=== PATIENT | female | born 1955 | race Caucasian/White ===

== ENCOUNTER 2017-10-04 11:37 | Emergency (ER) | payer BC, OTHER ==
[~2017-10-04] VITALS: Ht 149.9 cm; Wt 105.2 kg
[2017-10-04] MEDS ORDERED: ROPI1TAB2 (12:31)
[2017-10-04] MEDS ORDERED: TRAM50TA2 (12:31)
[2017-10-04] MEDS ORDERED: OXYC-465 (12:31)
[2017-10-04] MEDS ORDERED: ALPR1TAB7 (12:31)
[2017-10-04] MEDS ORDERED: ALLO100T (12:31)
--- NOTE | 2017-10-04 12:37 | ED Fall/Injury ---
General Chief Complaint: Trauma-Non Activation Stated Complaint: FALL/RIGHT RIB PAIN Nursing Triage Note: PT CO OF FALL AT [facility] PT STATES SLIPPED HAS PAIN IN R RIB,R SHOULDER AND LIMITED MOVEMENT OF R ARM. DENIES LOC Source: patient Exam Limitations: no limitations History of Present Illness Date Seen by Provider: Oct 04, 2017 Time Seen by Provider: 12:17 Initial Comments Here with report of right shoulder and rib pain after falling at the [facility]. Apparently the drain in the locker room was not draining and she slipped on the floor between the stall wall and the toilet. When she slipped down her, her arm was extended upwards. Complains of pain between the shoulder blade and the spine on the right as well as some lateral rib pain. Denies shortness of breath. Location Injury Occurred: [place] Occurred: just prior to arrival (approximately one hour ago) Severity: moderate Injuries/Pain Location: upper extremity, chest, back Context: slipped Loss of Consciousness: no loss of consciousness Associated Symptoms (Fall): No Abdominal Pain, Chest Pain, No Confusion, No Headache, No Lightheadedness, No Nausea/Vomiting, No Neck Pain Allergies and Home Medications Allergies Coded Allergies: No Known Drug Allergies (Unverified , 10/04/17) Home Medications Allopurinol 100 Mg Tablet, (Reported) Alprazolam 1 Mg Tablet, (Reported) Oxycodone HCl/Acetaminophen 1 Each Tablet, (Reported) Ropinirole HCl 1 Mg Tablet, (Reported) Tramadol HCl 50 Mg Tablet, (Reported) Constitutional: see HPI, No chills, No fever Eyes: See HPI Ears, Nose, Mouth, Throat: no symptoms reported Respiratory: No cough, No short of breath Cardiovascular: see HPI, No palpitations Gastrointestinal: No abdominal pain, No nausea, No vomiting Genitourinary: no symptoms reported Musculoskeletal: see HPI, back pain, joint pain, muscle pain, muscle stiffness Skin: no symptoms reported, No change in color, No lesions Past Bfrlwkv-Uvaonj-Ukutyz Hx Patient Social History Alcohol Use: Denies Use Recreational Drug Use: No Smoking Status: Never a Smoker Recent Foreign Travel: No Contact w/Someone Who Travel: No Recent Infectious Disease Expo: No Recent Hopitalizations: No Surgeries History of Surgeries: Yes (TOENAIL REMOVAL) Reviewed Nursing Assessment Reviewed/Agree w Nursing PMH: Yes Family Medical History Significant Family History: No Pertinent Family Hx Physical Exam Vital Signs Vital Signs - First Documented 10/04/17 12:05 Temp 97.4 Pulse 71 Resp 18 B/P (MAP) 162/70 (100) Pulse Ox 97 Capillary Refill : Less Than 3 Seconds General Appearance: WD/WN, no apparent distress Neck: non-tender, full range of motion, supple, normal inspection Cardiovascular: regular rate, rhythm, no murmur Respiratory: lungs clear, normal breath sounds Gastrointestinal: non tender, soft Neurologic/Psychiatric: alert, oriented x 3 Skin: normal color, warm/dry, No ecchymosis Weatherly Coma Score Best Eye Response: (4) Open Spontaneously Best Verbal Response: (5) Oriented Best Motor Response: (6) Obeys Commands Progress/Results/Core Measures Results/Orders My Orders Orders - CAROLINE PALAFOX MD Chest 1 View, Ap/Pa Only (10/04/17 12:12) Ribs, Right 2-3 Views (10/04/17 12:12) Shoulder, Right, 3 Views (10/04/17 12:12) Vital Signs/I&O Vital Sign - Last 12Hours 10/04/17 12:05 Temp 97.4 Pulse 71 Resp 18 B/P (MAP) 162/70 (100) Pulse Ox 97 Blood Pressure Mean: 100 Progress Note : Progress Note Seen and evaluated. X-ray of the chest, right ribs and right shoulder ordered. Monitor patient. 1345: No acute findings. Discharged home with return precautions. Patient verbalize understanding instructions and agreement with plan. Patient does likely have strain of the rhomboid muscles on the right given her type of fall and the lack of fractures but type of pain she is having. She is prescribed oxycodone 10/325. We will increase that to every 4 hours for the next few days. She will use previously prescribed topical cream and/or Biofreeze as well. Diagnostic Imaging Diagonstic Imaging: Xray Plain Films/CT/US/NM/MRI: chest Comments VIA [facility]. [place], [place] NAME: TYRONE CASTRO [facility] REC#: [id number] PT STATUS: REG ER : 1955 PHYSICIAN: CAROLINE PALAFOX MD ADMIT DATE: 10/04/17/ER Draft Date of Exam:10/04/17 CHEST 1 VIEW, AP/PA ONLY CLINICAL INDICATION: Patient fell off toilet at home and has pain on right posterior ribs. EXAM: Portable chest x-ray upright view. COMPARISONS: None. FINDINGS: Lungs/pleura: Lungs are clear. There is no pneumothorax. There is no pleural effusion. Mediastinum: Unremarkable. Pulmonary vasculature: Unremarkable. Heart: Unremarkable. Bones/extrathoracic soft tissue: There are small degenerative spurs involving the thoracic spine. IMPRESSION: There is no radiographic evidence of acute cardiopulmonary process. Dictated on workstation # [id number] Dict: 10/04/17 1252 Trans: 10/04/17 1254 [facility] [id number] Interpreted by: ILIANA MCCALL MD Electronically signed by: Diagonstic Imaging: Xray Plain Films/CT/US/NM/MRI: other (ribs) Comments VIA [place], [place] NAME: TYRONE CASTRO [facility] REC#: [id number] PT STATUS: REG ER : 1955 PHYSICIAN: CAROLINE PALAFOX MD ADMIT DATE: 10/04/17/ER Draft Date of Exam:10/04/17 RIBS, RIGHT 2-3 VIEWS CLINICAL INDICATION: Patient fell off toilet at home and has pain in the right posterior ribs. EXAM: X-ray right rib series, three images. COMPARISON: Chest x-ray dated 10/04/2017. FINDINGS: Of note, there is limited visualization of the mid and lower ribs due to overlapping soft tissue. There is no evidence of acute rib fracture. Multilevel thoracic and lumbar spine degenerative spurs. Visualized portion of the chest is unremarkable. There are mild degenerative changes of the right shoulder. IMPRESSION: There is no fracture of the right ribs seen. Dictated on workstation # [id number] Dict: 10/04/17 1255 Trans: 10/04/17 1300 [id number] Interpreted by: ILIANA MCCALL MD Electronically signed by: Diagonstic Imaging: Xray Plain Films/CT/US/NM/MRI: other (shoulder) Comments [facility]IA [place], [place] NAME: TYRONE CASTRO [facility] REC#: [id number] PT STATUS: REG ER : 1955 PHYSICIAN: CAROLINE PALAFOX MD ADMIT DATE: 10/04/17/ER Draft Date of Exam:10/04/17 SHOULDER, RIGHT, 3 VIEWS CLINICAL INDICATION: Patient fell off toilet at home and now has pain in right shoulder. EXAM: X-ray of the right shoulder, three views. COMPARISON: None. FINDINGS: There is no acute fracture or dislocation. There are small degenerative spurs involving the right acromioclavicular joint and proximal humeral head/neck junction region. IMPRESSION: 1: Mild degenerative disease of the right shoulder with no acute fracture or dislocation. Dictated on workstation # [id number] Dict: 10/04/17 1254 Trans: 10/04/17 1257 [id number] Interpreted by: ILIANA MCCALL MD Electronically signed by: Departure Impression Impression: Primary Impression: Muscle strain of right shoulder region Qualified Codes: S46.911A - Strain of unspecified muscle, fascia and tendon at shoulder and upper arm level, right arm, initial encounter Additional Impression: Contusion of right chest wall Qualified Codes: S20.211A - Contusion of right front wall of thorax, initial encounter Disposition: 01 HOME, SELF-CARE Condition: Stable Departure-Patient Inst. Decision time for Depature: 13:48 Referrals: NO,LOCAL PHYSICIAN (PCP/Family) Primary Care Physician Patient Instructions: CHEST CONTUSION, Muscle Strain (DC), RIB CONTUSION Add. Discharge Instructions: All discharge instructions reviewed with patient and/or family. Voiced understanding. Continue home medications as directed. You may increase your oxycodone pain reliever to one every 4 hours for the next couple days. You may also take ibuprofen 400 or 600 mg every 6 hours. Use ice packs to affected area 20 minutes per hour as needed. Follow up with your DrKarina in a few days for recheck. Return for worse pain, fever, vomiting, weakness, breathing problems or other concerns as needed. CAROLINE PALAFOX MD Oct 04, 2017 12:37
--- NOTE | 2017-10-04 12:55 | Diagnostic Imaging Report ---
CLINICAL INDICATION: Patient fell off toilet at home and has pain on right posterior ribs. EXAM: Portable chest x-ray upright view. COMPARISONS: None. FINDINGS: Lungs/pleura: Lungs are clear. There is no pneumothorax. There is no pleural effusion. Mediastinum: Unremarkable. Pulmonary vasculature: Unremarkable. Heart: Unremarkable. Bones/extrathoracic soft tissue: There are small degenerative spurs involving the thoracic spine. IMPRESSION: There is no radiographic evidence of acute cardiopulmonary process. Dictated by: Dictated on workstation # [id number]
--- NOTE | 2017-10-04 12:57 | Diagnostic Imaging Report ---
CLINICAL INDICATION: Patient fell off toilet at home and now has pain in right shoulder. EXAM: X-ray of the right shoulder, three views. COMPARISON: None. FINDINGS: There is no acute fracture or dislocation. There are small degenerative spurs involving the right acromioclavicular joint and proximal humeral head/neck junction region. IMPRESSION: 1: Mild degenerative disease of the right shoulder with no acute fracture or dislocation. Dictated by: Dictated on workstation # [id number]
--- NOTE | 2017-10-04 13:00 | Diagnostic Imaging Report ---
CLINICAL INDICATION: Patient fell off toilet at home and has pain in the right posterior ribs. EXAM: X-ray right rib series, three images. COMPARISON: Chest x-ray dated 10/04/2017. FINDINGS: Of note, there is limited visualization of the mid and lower ribs due to overlapping soft tissue. There is no evidence of acute rib fracture. Multilevel thoracic and lumbar spine degenerative spurs. Visualized portion of the chest is unremarkable. There are mild degenerative changes of the right shoulder. IMPRESSION: There is no fracture of the right ribs seen. Dictated by: Dictated on workstation # [id number]
[2017-10-04 14:14] VITALS: BP 162/70
--- OUTSIDE RECORDS SUMMARY | 2017-10-04 16:51 | XMS REPORT ---
Author Author MISA FENG [facility] Address Unknown Care Team Providers Care Janitorial Manager Name Role Phone MISA FENG Unavailable PROBLEMS Unknown Problems ALLERGIES No Known Allergies SOCIAL HISTORY Never Assessed PLAN OF CARE Activity Details Follow Up prn Reason:patient was referred VITAL SIGNS Blood pressure systolic 122 mmHg 2016-12-19 Blood pressure diastolic 80 mmHg 2016-12-19 MEDICATIONS Medication Instructions Dosage Frequency Start Date End Date Duration Status Xanax Active Percocet Active Tramadol HCl Active RESULTS No Results PROCEDURES Procedure Date Ordered Result Body Site LTD ORAL EVALUATION - PROBLEM FOCUS December 19, 2016 INTRAORL-PERIAPICAL 1 FILM [id number] December 19, 2016 BITEWING - SINGLE FILM December 19, 2016 IMMUNIZATIONS No Known Immunizations
--- OUTSIDE RECORDS SUMMARY | 2017-10-04 16:51 | XMS REPORT | Continuity of Care Document ---
Author Author [facility] Organization [facility] Address Unknown Phone Unavailable Allergies There is no data. Medications There is no data. Problems There is no data. Procedures There is no data. Results There is no data. Encounters ACCT No. Visit Date/Time Discharge Status Pt. Type Provider Facility Loc./Unit Complaint [id number] 10/15/2016 15:40:29 10/15/2016 23:59:59 CLS Outpatient RASHID WHITMAN
--- OUTSIDE RECORDS SUMMARY | 2017-10-04 16:51 | XMS REPORT ---
Author Author RASHID WHITMAN [facility] Address [address] [place], [place] [id number] Care Team Providers Care Employee Training Specialist Name Role Phone RASHID WHITMAN PCP Unavailable Allergies and Adverse Reactions Name Reaction Notes No known drug allergy Plan of Treatment Not available. Medications Active Name Start Date Estimated Completion Date SIG Comments tramadol 50 mg oral tablet take 1 tablet (50 mg) by oral route every 6 hours as needed ropinirole 1 mg oral tablet alprazolam 1 mg oral tablet take 1 tablet (1 mg) by oral route 3 times per day diclofenac sodium 75 mg oral tablet,delayed release (DR/EC) 10/16/2016 take 1 tablet (75 mg) by oral route 2 times per day Problem List Description Status Onset Other chronic pain Active 10/16/2016 Osteoarthrosis, generalized, multiple sites Active 10/16/2016 Morbid obesity due to excess calories Active 10/16/2016 Restless leg Active 10/16/2016 Knee pain, bilateral Active 10/16/2016 Vital Signs Date Time BP-Sys(mm[Hg] BP-Lilian(mm[Hg]) HR(bpm) RR(rpm) Temp WT HT HC BMI BSA BMI Percentile O2 Sat(%) 10/15/2016 4:15:00 PM 132 mmHg 82 mmHg 72 bpm 18 rpm 99 F 236 lbs 62 in 43.16 kg/m2 2.16 m2 98 % Social History Name Description Comments Uses seatbelts Tobacco Never smoker Alcohol Never History of Procedures Not available. Results Summary Not available. History Of Immunizations Not available. History of Past Illness Name Date of Onset Comments Hay Fever Anxiety Arthritis Other chronic pain 10/16/2016 Osteoarthrosis, generalized, multiple sites 10/16/2016 Morbid obesity due to excess calories 10/16/2016 Restless leg 10/16/2016 Knee pain, bilateral 10/16/2016 Other chronic pain Oct 15 2016 4:16PM Moderate Osteoarthrosis, generalized, multiple sites Oct 15 2016 4:16PM Morbid obesity due to excess calories Oct 15 2016 4:16PM Pain in right knee Oct 15 2016 4:16PM Pain in left knee Oct 15 2016 4:16PM Restless leg Oct 15 2016 4:16PM Payers Insurance Name Company Name Plan Name Plan Number Policy Number Policy Group [id number]/A History of Encounters Visit Date Visit Type Provider 10/15/2016 Office visit RASHID BARNES
== END 2017-10-04 14:14 | disposition home or self-care (01) ==
LOC: ER 11:41
DX: S46.911A Strain of unspecified muscle, fascia and tendon at shoulder and upper arm level, right arm, initial encounter (principal); S20.211A Contusion of right front wall of thorax, initial encounter; W01.0XXA Fall on same level from slipping, tripping and stumbling without subsequent striking against object, initial encounter; Y92.29 Other specified public building as the place of occurrence of the external cause
CPT/HCPCS: 71045; 71100; 73030; 99282

== ENCOUNTER 2018-05-19 09:10 | Emergency (ER) | payer BC ==
[~2018-05-19] VITALS: Ht 149.9 cm; Wt 105.7 kg
[~2018-05-19 09:10] MED LIST: ALLO100T; ALPR1TAB7; OXYC-465; ROPI1TAB2; TRAM50TA2
--- NOTE | 2018-05-19 09:36 | ED Lower Extremity ---
General Chief Complaint: Lower Extremity Stated Complaint: L KNEE PAIN;FALL Nursing Triage Note: AMB TO ROOM [facility] 2 WEEKS AGO L WAS GETTING OUT OF CHAIR L LEG WAS ASLEEP AND FELL ON IT HYDROCODONE NOT HELPING,BUT STILL ABLE TO RIDE HER BIKE . Nursing Sepsis Screen: No Definite Risk Source: patient Exam Limitations: no limitations History of Present Illness Date Seen by Provider: May 19, 2018 Time Seen by Provider: 09:26 Initial Comments Patient presents to the ER by private conveyance with chief complaint that she is having some knee pain about a 7 or 8 out of 10 when she walks on it. She says 2 weeks ago she was sitting in her chair and her left leg went numb so she was getting up to go to the kitchen and using the cabinets and handrails to walk when she fell on the kitchen floor. She did have some pain in her left knee at that time as well as her left shoulder and little bruise on her left forehead. She did not get checked out at that time. She said the rest of the got better but her knee continued to persist. She has not seen her doctor yet. She sees a nurse practitioner with Dr. López in [place], [place]. She is known to the orthopedic surgeons in [facility] however she would prefer not to go back there. She is using tramadol and hydrocodone that she has prescribed to her for her chronic back pain and it's only marginally helping. She will use Aleve once every other day and she says that helps more than anything as well as Voltaren gel. She does not have a history of using blood thinners, heart disease, kidney dysfunction. Allergies and Home Medications Allergies Coded Allergies: No Known Drug Allergies (Unverified , 10/04/17) Patient Home Medication List Home Medication List Reviewed: Yes Review of Systems Constitutional: No chills, No diaphoresis EENTM: No hearing loss, No ear pain Respiratory: No cough, No short of breath Cardiovascular: No chest pain, No edema Gastrointestinal: No abdominal pain, No constipation, No nausea Genitourinary: No discharge, No dysuria Musculoskeletal: No back pain; joint pain Past Rumjwlj-Uqmcpp-Qzwdys Hx Patient Social History Alcohol Use: Denies Use Recreational Drug Use: No Smoking Status: Never a Smoker Recent Foreign Travel: No Contact w/Someone Who Travel: No Recent Infectious Disease Expo: No Recent Hopitalizations: No Past Medical History Surgeries: Yes (TOENAIL REMOVAL) Family Medical History No Pertinent Family Hx Physical Exam Vital Signs Capillary Refill : Less Than 3 Seconds Height, Weight, BMI Height: 4'11.00" Weight: 233lbs. oz. 105.255376kl; BMI Method:Stated General Appearance: WD/WN, no apparent distress HEENT: PERRL/EOMI, pharynx normal Neck: non-tender, normal inspection Cardiovascular: normal peripheral pulses, regular rate, rhythm Respiratory: lungs clear, normal breath sounds Gastrointestinal: normal bowel sounds, non tender, soft Legs: bilateral leg non-tender, bilateral leg normal inspection, bilateral leg normal range of motion, bilateral leg no evidence of injury Knees: right knee non-tender; bilateral knee normal inspection, bilateral knee normal range of motion; right knee no evidence of injury; left knee bone tenderness (patella), left knee joint effusion (mild), left knee pain, left knee swelling (scant), left knee other (anterior Andrew's test has some laxity and tenderness) Ankles: bilateral ankle non-tender, bilateral ankle normal inspection, bilateral ankle normal range of motion, bilateral ankle no evidence of injury Progress/Results/Core Measures Results/Orders Blood Pressure Mean: 93 Progress Progress Note : Time: 09:36 Progress Note We'll give her referral to orthopedic surgery. We have offered her different pain medicines and landed upon using Naprosyn 2 capsules twice a day for the next 2 weeks. Wrap her knee with an Pato bandage encourage elevation and ice and heat. Keep using Voltaren gel. Departure Impression Primary Impression: Sprain of knee Qualified Codes: S83.512A - Sprain of anterior cruciate ligament of left knee , initial encounter Disposition: 01 HOME, SELF-CARE Condition: Stable Departure-Patient Inst. Decision time for Depature: 09:38 Referrals: NO,LOCAL PHYSICIAN (PCP) Primary Care Physician RASHID ZEPEDA MD Patient Instructions: Knee Sprain (DC) Add. Discharge Instructions: Keep your knee wrapped with an Pato bandage or neoprene sleeve. You can use heat alternated with ice. Take the Naprosyn 2 capsules twice a day for the next 2 weeks. He certainly have chest pain or indigestion discontinue the Naprosyn and go see her doctor. Call Drs. Zepeda at his office and make a follow-up appointment. You may need to see your primary care doctor for referral. All discharge instructions reviewed with patient and/or family. Voiced understanding. Copy Copies To 1: RASHID ZEPEDA MD, TITUS J May 19, 2018 09:36
[2018-05-19 09:48] VITALS: BP 141/69
--- OUTSIDE RECORDS SUMMARY | 2018-05-19 10:39 | XMS REPORT | Continuity of Care Document ---
Author Author [facility] Organization [facility] Address Unknown Phone Unavailable Allergies Active Description Code Type Severity Reaction Onset Reported/Identified Relationship to Patient Clinical Status Yes No Known Drug Allergies [id number] Drug Allergy Unknown N/A 10/04/2017 Medications There is no data. Problems Date Dx Coded Attending Type Code Diagnosis Diagnosed By 10/04/2017 CAROLINE PALAFOX MD Ot M25.511 PAIN IN RIGHT SHOULDER 10/04/2017 CAROLINE PALAFOX MD Ot S20.211A CONTUSION OF RIGHT FRONT WALL OF THORAX, 10/04/2017 CAROLINE PALAFOX MD Ot S46.911A STRAIN UNSP [facility]C/FASC/TEND AT [facility] 10/04/2017 CAROLINE PALAFOX MD Ot W01.0XXA FALL SAME LEV FROM SLIP/TRIP W/O STRIKE 10/04/2017 CAROLINE PALAFOX MD Ot Y92.29 [facility] [address] [address] 10/07/2017 CAROLINE PALAFOX MD Ot M25.511 PAIN IN RIGHT SHOULDER 10/07/2017 CAROLINE PALAFOX MD Ot S20.211A CONTUSION OF RIGHT FRONT WALL OF THORAX, 10/07/2017 CAROLINE PALAFOX MD Ot S46.911A STRAIN UNSP [facility]/FASC/TEND AT [facility] 10/07/2017 CAROLINE PALAFOX MD Ot W01.0XXA FALL SAME LEV FROM SLIP/TRIP W/O STRIKE 10/07/2017 CAROLINE PALAFOX MD Ot Y92.29 [facility] [address] Procedures There is no data. Results There is no data. Encounters ACCT No. Visit Date/Time Discharge Status Pt. Type Provider Facility Loc./Unit Complaint [id number] 10/15/2016 15:40:29 10/15/2016 23:59:59 [facility] Outpatient RASHID WHITMAN [id number] 10/04/2017 11:41:00 10/04/2017 14:14:00 DIS Emergency JAVY GRESHAM, CAROLINE Lopez [facility] FALL/RIGHT RIB PAIN
== END 2018-05-19 09:48 | disposition home or self-care (01) ==
LOC: EDUNIT# 09:10 → ER 09:11
DX: S83.512A Sprain of anterior cruciate ligament of left knee, initial encounter (principal); W07.XXXA Fall from chair, initial encounter
CPT/HCPCS: 99283

== ENCOUNTER 2021-02-27 16:08 | Emergency (ER) | payer OTHER, MEDICARE ==
[~2021-02-27] VITALS: Ht 149 cm; Wt 105.0 kg
[~2021-02-27 16:08] MED LIST changes: -OXYC-465; +OXYC-556; +ROPI1TAB; -ROPI1TAB2; -TRAM50TA2; +TRM50T
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
[2021-02-27 17:26] VITALS: BP 126/66
== END 2021-02-27 17:27 | disposition home or self-care (01) ==
LOC: EDUNIT# 16:08 → ER 16:11
DX: M54.10 Radiculopathy, site unspecified (principal)
CPT/HCPCS: 99282

== ENCOUNTER → 2021-03-06 | Outpatient (CLI) | payer OTHER, MEDICARE ==
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
== END ==
LOC: RAD 11:01
PROVIDERS: ATTEND Chiropractor
DX: M47.814 Spondylosis without myelopathy or radiculopathy, thoracic region (principal); M25.512 Pain in left shoulder; M54.2 Cervicalgia; V89.2XXA Person injured in unspecified motor-vehicle accident, traffic, initial encounter
CPT/HCPCS: 72040; 72072; 73030

== ENCOUNTER → 2021-03-08 | Outpatient (CLI) | payer OTHER, MEDICARE ==
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
== END ==
LOC: RAD 08:45
PROVIDERS: ATTEND Chiropractor
DX: S46.012A Strain of muscle(s) and tendon(s) of the rotator cuff of left shoulder, initial encounter (principal); M19.012 Primary osteoarthritis, left shoulder; M50.21 Other cervical disc displacement, high cervical region; M47.812 Spondylosis without myelopathy or radiculopathy, cervical region; R09.89 Other specified symptoms and signs involving the circulatory and respiratory systems; V89.2XXA Person injured in unspecified motor-vehicle accident, traffic, initial encounter
CPT/HCPCS: 72141; 73221

== ENCOUNTER → 2022-06-12 | Outpatient (CLI) | payer MEDICARE, OTHER ==
--- NOTE | 2022-06-12 14:46 | Diagnostic Imaging Report ---
Exam: CT left knee without contrast. Date: June 12, 2022. Indication: 66-year-old female, chronic left knee pain. Exam prior to knee replacement. Surgical planning. Comparison: None. Technique: Axial CT images of the knee without contrast were obtained. Axial CT images at the level of the hip and ankle were also obtained for measurements of femoral version and tibial torsion and surgical planning. All CT scans use one or more of the following dose optimizing techniques: automated exposure control, MA and/or KvP adjustment based on patient size and exam type or iterative reconstruction. Findings: There is severe patellofemoral compartment joint space loss with subchondral cystic changes and osteophytes. There is limited assessment of the medial and lateral compartments given axial only imaging. There is a small knee joint effusion. There is no identified acute fracture or aggressive bone lesion. Impression: 1. Advanced at least patellofemoral compartment osteoarthritis with small knee joint effusion. 2. Limited evaluation of the medial and lateral compartments given axial only imaging. Dictated by: Dictated on workstation # [id number]
== END ==
LOC: RAD 11:08
PROVIDERS: ATTEND Orthopaedic Surgery
DX: M17.0 Bilateral primary osteoarthritis of knee (principal)
CPT/HCPCS: 73700

== ENCOUNTER 2022-06-27 08:11 | Outpatient (CLI) | payer MEDICARE, OTHER ==
[~2022-06-27] VITALS: Ht 149.8 cm; Wt 103.4 kg
[~2022-06-27 08:11] MED LIST changes: -ALPR1TAB7; +ALPR1TAB7 PO; -ROPI1TAB; +ROPI1TAB PO; -TRM50T; +TRM50T PO
[2022-06-27] MEDS ORDERED: DICL100G13 TP (08:57)
[2022-06-27] MEDS ORDERED: MELA1TAB20 PO (08:57)
[2022-06-27] MEDS ORDERED: TURMERIC (08:57)
[2022-06-27] MEDS ORDERED: MULT-1136 PO (08:57)
[2022-06-27] MEDS ORDERED: TLT2T PO (08:57)
[2022-06-27 09:29] LABS: BASOPHILS # (AUTO) 0.1 10^3/uL (0.0-0.1); BASOPHILS % (AUTO) 1 % (0-10); EOSINOPHILS # (AUTO) 0.1 10^3/uL (0.0-0.3); EOSINOPHILS % (AUTO) 2 % (0-10); HEMATOCRIT 45 % (35-52); HEMOGLOBIN 14.4 g/dL (11.5-16.0); LYMPHOCYTES # (AUTO) 1.2 10^3/uL (1.0-4.0); LYMPHOCYTES % (AUTO) 21 % (12-44); MEAN CORPUSCULAR HEMOGLOBIN 30 pg (25-34); MEAN CORPUSCULAR HGB CONC 32 g/dL (32-36); MEAN CORPUSCULAR VOLUME 94 fL (80-99); MONOCYTES # (AUTO) 0.4 10^3/uL (0.0-1.0); MONOCYTES % (AUTO) 7 % (0-12); NEUTROPHILS # (AUTO) 4.2 10^3/uL (1.8-7.8); NEUTROPHILS % (AUTO) 69 % (42-75); PLATELET COUNT 209 10^3/uL (130-400)
[2022-06-27 09:43] LABS: INR 0.9 (0.8-1.4); PROTHROMBIN TIME PATIENT 12.4 SEC (12.2-14.7)
[2022-06-27 09:48] LABS: BILIRUBIN,TOTAL 0.3 MG/DL (0.1-1.0); CALCIUM 9.1 MG/DL (8.5-10.1); CREATININE SERUM 0.86 MG/DL (0.60-1.30); TOTAL PROTEIN 7.2 GM/DL (6.4-8.2)
[2022-06-27 09:50] VITALS: BP 107/48
--- NOTE | 2022-06-27 09:56 | Physical Therapy Pre-Op Eval ---
PT Pre-Surgical Assessment Type of Surgery pre-op left TKA Prior Level of Function Current Living Status: Significant Other Locomotion (Upon Admit): Independent, Straight Cane PLOF DME: Front Wheeled Walker, Straight Cane Subjective Subjective Patient has no pain at rest but has significant pain with activity. Current Living Status: Significant Other Steps Into Home: 1 Motor Control Motor Control: Motor Control WNL ROM left knee flexion 90 degrees, extension +5 degrees Strength LLE (hip flexion 3/5, knee flexion 4/5, knee extension 4/5, dorsiflexion 4/5), RLE (hip flexion 3/5, knee flexion 4/5, knee extension 4/5, dorsiflexion 4/5) Gait Patient instructed on the use and adjusting a rolling walker and how to go up and down stairs and HEP. Treatment Rendered Treatment: Patient instructed in assistive device, supported ambulation. Patient instructed in and given written program of ROM and strengthening exercises to be preformed post-op. Patient instructed in movement precautions where applicable. Patient demonstrates understandings of post-operative therapy protocol including gait pattern and exercise program. Pre-operative instruction completed; await physical therapy orders after surgery. Treatment Goal Met: Yes Assessment Goals Acheived: I Ambulation w/ FWW, Understands P-op [place], I Post-op Exercises Charges/GCodes Time In: 926 Time Out: 936 Total Billed Treatment Time: 10 Total Billed Treatment 1 visit ERVIN FLANAGANCHRISSYCALLUM PT Jun 27, 2022 09:56
[2022-06-27 09:57] LABS: ERYTHROCYTE SEDIMENTATION RATE 12 MM/HR (0-30)
[2022-06-27 10:47] LABS: BILIRUBIN,URINE NEGATIVE (NEGATIVE); CLARITY,URINE CLEAR; COLOR,URINE YELLOW; GLUCOSE, URINE (UA) NEGATIVE (NEGATIVE); KETONES,URINE NEGATIVE (NEGATIVE); LEUKOCYTE ESTERASE ,URINE 1+ (NEGATIVE); NITRITE,URINE NEGATIVE (NEGATIVE); PH,URINE 6.5 (5-9); PROTEIN,URINE NEGATIVE (NEGATIVE)
[2022-06-27 10:54] LABS: BACTERIA,URINE NEGATIVE /HPF; SQUAMOUS EPITHELIAL CELL,UR 0-2 /HPF; WBC,URINE 0-2 /HPF
--- NOTE | 2022-06-27 13:28 | Diagnostic Imaging Report ---
INDICATION: Preop left total knee. COMPARISON: 03/03/2019. FINDINGS: The lungs are clear. No failure, effusion, or pneumothorax. IMPRESSION: Stable chest. No acute appearing abnormality. Dictated by: Dictated on workstation # [id number]
== END 2022-06-28 15:41 ==
LOC: PREOP 08:11
PROVIDERS: ATTEND Orthopaedic Surgery
DX: Z01.818 Encounter for other preprocedural examination (principal); M17.12 Unilateral primary osteoarthritis, left knee
CPT/HCPCS: 36415; 71046; 80053; 81000; 82308; 85025; 85610; 85652; 86850; 86900; 86901; 87081; 93005

== ENCOUNTER 2022-07-04 07:59 | Inpatient (IN) | payer MEDICARE, OTHER ==
--- NOTE | 2022-06-26 07:32 | HISTORY AND PHYSICAL ---
ADMISSION HISTORY AND PHYSICAL This will be for inpatient admission on 07/04/2022 for left total knee arthroplasty. The patient will require regular inpatient admission due to pain management, need for physical therapy and comorbidities. HISTORY OF PRESENT ILLNESS: The patient is a 66-year-old female with longstanding progressive bilateral knee pain, left worse than right. She reports pain with activities of daily living. She has undergone treatment with injections, anti-inflammatories and rest without relief. Due to functional impairment and failure to improve with conservative measures, the patient elected to proceed with surgical intervention. REVIEW OF SYSTEMS: No chest pain, no shortness of breath, no dysuria. PAST MEDICAL HISTORY: Back pain, leg pain, paresthesias, dysmorphic mood, anxiety, stress, depression, arthritis. PAST SURGICAL HISTORY: Tonsillectomy, right foot bunionectomy, root canal, , second toe and right foot removal. FAMILY HISTORY: Significant for Alzheimer's, cancer, hypertension. PRIMARY CARE PROVIDER: Dr. López. MEDICATIONS: Diclofenac, tramadol, Detrol, turmeric, melatonin, alprazolam, ropinirole. ALLERGIES: LYRICA, PENICILLIN. SOCIAL HISTORY: The patient is a former smoker. She drinks alcohol 2 to 3 times per week. PHYSICAL EXAMINATION: GENERAL: The patient is well-developed, well-nourished, in no acute distress. HEENT: Normocephalic, atraumatic. Pupils are equal, round and reactive to light. Oropharynx is clear. NECK: Supple, no lymphadenopathy. LUNGS: Clear to auscultation bilaterally. HEART: Regular rate and rhythm. ABDOMEN: Soft, nontender, nondistended. EXTREMITIES: The left knee demonstrates valgus alignment. She has a slight effusion. She is tender along her lateral joint line. She has pain with patellar loading and crepitus noted. Range of motion is 0/0/120. There is no varus valgus laxity. Negative anterior and posterior drawer. IMPRESSION: Left knee primary osteoarthritis. PLAN: Left total knee arthroplasty. The risks, benefits, options, ramifications and recovery were discussed at length with the patient. She understands and wishes to proceed. DocumentID: [id number] Dictated Date: 06/22/2022 00:00:00 Supervisor Receiving And Processing Date: 06/22/2022 03:29:00 Dictated By: RASHID ZEPEDA MD
[2022-07-04] VITALS (14 sets, daily range): BP systolic 114–164; BP diastolic 56–95
[~2022-07-04] VITALS: Ht 149.8 cm; Wt 103.4 kg
[~2022-07-04 07:59] MED LIST changes: -ALLO100T; +ALLO100T PO; +DICL100G13 TP; +MELA1TAB20 PO; +MULT-1136 PO; +ONDANSETRON 4 MG/2 ML (SDV) Z0FRAN IVP PRN; +TLT2T PO; +TURMERIC; +diphenhydrAMINE 50 MG/ML INJ (BENADRYL) IVP PRN; +morphine PCA 100 MG/100 ML BAG IV PRN
[2022-07-04] MEDS ORDERED: CEFUROXIME INJECTION 1,500 MG in NS (IVPB) 50 ML IV ONE (08:15)
[2022-07-04] MEDS ORDERED: INTRA-ARTICULAR IU ONE ×5 (08:30)
[2022-07-04] MEDS ORDERED: MIDAZOLAM 2 MG/2 ML (VERSED) VIAL ONE (08:31)
[2022-07-04] MEDS ORDERED: fentaNYL INJ 100 MCG/2 ML AMP ONE ×3 (08:40→11:30)
[2022-07-04] MEDS ORDERED: ROPIVACAINE 5MG/ML 30ML VIAL ONE (08:41)
--- NOTE | 2022-07-04 09:07 | Progress Note-Pre Operative ---
Pre-Operative Progress Note Date of Available H&P: Jun 22, 2022 Date H&P Reviewed: Jul 04, 2022 Time H&P Reviewed: 07:11 Changes from last HP none Pre-Operative Diagnosis: left knee primary osteoarthitis RASHID ZEPEDA MD Jul 04, 2022 09:07
--- NOTE | 2022-07-04 09:08 | Progress Note-Post Operative ---
Post-Operative Progess Note Surgeon (s)/Ticket Sales Agent (s) Surgeon RASHID ZEPEDA MD Ticket Sales Agent: Moises Sebastian Pre-Operative Diagnosis left knee primary osteoarthitis Post-Operative Diagnosis left knee primary osteoarthitis Procedure & Operative Findings Date of Procedure 07/04/22 Procedure Performed/Findings left total knee arthroplasty Anesthesia Type GETA Estimated Blood Loss Estimated blood loss (mL): minimal Specimens/Packing Specimens Removed none Packing: none RASHID ZEPEDA MD Jul 04, 2022 09:08
[2022-07-04] MEDS: LACTATED RINGERS 1,000 ML IV PRN ×2 (09:09→10:59)
--- NOTE | 2022-07-04 09:11 | D/C HH Face to Face Order ---
D/C Face to Face Orders Reconcile Patient Problems Problems Reviewed?: Yes Instructions for Patient Via [facility], Patient Instructions/FollowUp: three weeks Physician to follow Patient: three weeks Discharge Diet for Home: Regular Diet Patient Data-Allergies,Ht & Wt Patient Allergies: Coded Allergies: codeine (Verified Allergy, Mild, ITCHY, 06/27/22) Height (Feet): 4 Height (Inches): 11.00 Weight (Pounds): 233 Home Health Need/Face to Face Date of Face to Face: Jul 04, 2022 Clinical Findings: Muscle weakness, Pain with ambulation I have seen Pt [id number]: Yes Discharged To: Home Diagnosis/Conditions: left total knee arthroplasty Patient is Homebound due to: Muscle weakness, Pain w/ambulation Homebound Status Due to the above stated illness, injury or surgical procedure (medical condition or diagnosis) and associated clinical findings, the patient is homebound because of his/her inability to leave home except with aid of a supportive device and/or person AND leaving the home requires a considerable and taxing effort or is medically contraindicated. Pt req the following assistanc: Walker Home Health Nursing Orders Home Health Services Order: Physical Therapy-Evaluate & Treat dc left knee purvi and apply steri strips 07/18/22 Therapy Orders Therapy Orders: Physical Therapy, PT to assess for OT Therapy Specific Orders: Eval assistive deivces, Teach enviro modifications/safety, Gait training, Increase strength/endurance, Provider maintenance therapy, Restore ROM Certify Stmt I certify that this patient is under my care and that I, a nurse practitioner or a physician; a commercial loan assistant working with me, had a face to face encounter that - meets the physician face to face encounter requirements with this patient as dated. RASHID ZEPEDA MD Jul 04, 2022 09:11
[2022-07-04] MEDS ORDERED: ONDANSETRON 4 MG/2 ML (SDV) Z0FRAN ONE (09:20)
[2022-07-04] MEDS ORDERED: LIDOCAINE PF 2% 5 ML (XYLOCAINE) VIAL ONE (09:20)
[2022-07-04] MEDS ORDERED: TRANEXAMIC ACID 100 MG/ML 10 ML INJECTION ONE (09:20)
[2022-07-04] MEDS ORDERED: proPOfol 200 MG/20 ML (DIPRIVAN) VIAL IV ONE (09:20)
[2022-07-04] MEDS ORDERED: PROPOFOL INJECTION 0 ML IV ONE (09:20)
[2022-07-04] MEDS ORDERED: SEVOFLURANE (ULTANE) 15 ML INHAL SOLN ONE (10:42)
[2022-07-04] MEDS ORDERED: HYDROmorphone 2 MG/ML VIAL (DILAUDID) ONE (10:49)
[2022-07-04] MEDS ORDERED: LACTATED RINGERS 1,000 ML IV ONE (10:50)
--- NOTE | 2022-07-04 10:53 | Anesthesia-General Post-Op ---
General Patient Condition Mental Status/LOC: Same as Preop Cardiovascular: Satisfactory Nausea/Vomiting: Absent Respiratory: Satisfactory Pain: Controlled Complications: Absent Post Op Complications Complications None Follow Up Care/Instructions Patient Instructions None needed. Anesthesia/Patient Condition Patient Condition Patient is doing well, no complaints, stable vital signs, no apparent adverse anesthesia problems. No complications reported per nursing. KATHY GONGORA CRNA Jul 04, 2022 10:53
[2022-07-04] MEDS ORDERED: ONDANSETRON 4 MG/2 ML (SDV) Z0FRAN IVP PRN (11:00)
[2022-07-04] MEDS ORDERED: HYDROmorphone 2 MG/ML VIAL (DILAUDID) IV ONE (11:00)
--- NOTE | 2022-07-04 11:13 | Progress Note ---
Standard Progress Note Progress Notes/Assess & Plan Date Seen by a Provider: Jul 04, 2022 Time Seen by a Provider: 11:12 Progress/Assessment & Plan post op check no complaints radiographs--HW well positioned without fracture LLE-2 plus DP pulse with brisk cap refill intact DF and PF of toes and ankle sensation intact to light touch s/p LTKA mobilize as able ARSHID ZEPEDA MD Jul 04, 2022 11:13
[2022-07-04] MEDS ORDERED: fentaNYL INJ 100 MCG/2 ML AMP IVP ONE (11:45)
[2022-07-04] MEDS: SENNA W/DOCUSATE (SENOKOT S) TABLET PO SCH ×2 (13:29→20:14)
[2022-07-04] MEDS: NS IV 1000 ML 1,000 ML IV SCH ×2 (13:51→20:09)
--- NOTE | 2022-07-04 14:05 | Physical Therapy Evaluation ---
PT Evaluation-General Medical Diagnosis Admission Date Jul 04, 2022 at 07:59 Medical Diagnosis: L TKA Onset Date: Jul 04, 2022 Therapy Diagnosis Therapy Diagnosis: Weakness, Impaired Mobility Height/Weight Height (Feet): 4 Height (Inches): 11.00 Weight (Pounds): 233 Precautions Precautions/Isolations: Standard Precautions Weight Bear Status Right Lower Extremity: Right Full Weight Bearing Left Lower Extremity: Left Weight Bearing/Tolerated Referral Physician: Romulo Reason for Referral: Evaluation/Treatment Medical History Additional Medical History PAST MEDICAL HISTORY: Back pain, leg pain, paresthesias, dysmorphic mood, anxiety, stress, depression, arthritis. PAST SURGICAL HISTORY: Tonsillectomy, right foot bunionectomy, root canal, , second toe and right foot removal. Reviewed History: Yes Social History Home: Single Level Current Living Status: Spouse Entry Into Home: Stairs Without Railing PT Steps Into Home: 2 Prior Prior Level of Function SCALE: Activities may be completed with or without assistive devices. 8-Mndiavqgwv-ofundqi completes the activity by him/herself with no assistance from a helper. 5-Set-up or Clean-up Assistance-helper sets up or cleans up; patient completes activity. [place] assists only prior to or following the activity. 4-Supervision or Touching Assistance-helper provides verbal cues and/or touching/steadying and/or contact guard assistance as patient completes activity. Assistance may be provided throughout the activity or intermittently. 3-Partial/Moderate Assistance-helper does LESS THAN HALF the effort. [place] lifts, holds or supports trunk or limbs, but provides less than half the effort. 2-Substantial/Maximal Assistance-helper does MORE THAN HALF the effort. [place] lifts or holds trunk or limbs and provides more than half the effort. 0-Kijtqaaga-xyhtka does ALL the effort. Patient does none of the effort to complete the activity. Or, the assistance of 2 or more helpers is required for the patient to complete the activity. If activity was not attempted, code reason: 7-Patient Refused. 9-Not Applicable-not attempted and the patient did not perform the activity before the current illness, exacerbation or injury. 10-Not Attempted due to Environmental Limitations-(lack of equipment, weather restraints, etc.). 88-Not Attempted due to Medical Conditions or Safety Concerns. Bed Mobility: 6 Transfers (B,C,W/C): 6 Gait: 6 Stairs: 6 Indoor Mobility (Ambulation): Independent Stairs: Independent Prior Device Use: Unspecified Cane PT Evaluation-Current Subjective Patient in bed pre-tx, reports 5/10 pain in L knee joint, agrees to PT with some encouragement. Pt/Family Goals Return to independence at home. Objective Patient Orientation: Person, Place, Situation Attachments: Polar Pack, IV ROM/Strength ROM Lower Extremities RLE grossly WFL, LLE diminished due to recent TKA Strength Lower Extremities LLE deferred due to pain, RLE grossly 4/5 Neuromuscular (Tone, Coordination, Reflexes) Coordination intact Sensory Vision: Functional Hearing: Functional Sensation Right Lower Extremit: Intact Sensation Left Lower Extremity: Intact Transfers Roll Left to Right (QC): 3 Sit to Lying (QC): 3 Lying to Sitting/Side of Bed(Q: 3 Sit to Stand (QC): 4 SBA gag-jf-bztjm, Min A by lifting L leg during bed mobility Gait Does the Patient Walk?: Yes Mode of Locomotion: Walk Anticipated Mode of Locomotion: Walk Walk 10 feet (QC): 4 Walk 50 ft with 2 Turns(QC): 4 Walk 150 ft (QC): 4 Distance: 150' Gait Assistive Device: FWW Comments/Gait Description SBA with ambulation, patient walks with decreased gait speed, decreased step length, decreased foot clearance, and slight limp on L side. Balance Sitting Static: Normal Sitting Dynamic: Normal Standing Static: Normal Standing Dynamic: Fair Treatment Ambulation, after getting back into bed patient refuses total knee exercises due to fatigue Assessment/Needs Patient walks well with SBA during ambulation. Patient needs assistance to lift L leg with bed mobility due to decreased strength. Patient in bed post-tx with nurse phone, tray, phone, in room, polar pack on, all needs met. Rehab Potential: Fair PT Fitness Worker Goals Longterm Goals PT Fitness Worker Goals Time Frame: Jul 11, 2022 Roll Left & Right (QC): 6 Sit to Lying (QC): 6 Lying-Sitting on Side/Bed(QC): 6 Sit to Stand (QC): 6 Chair/Gqt-zf-Apnrt Xfer(QC): 6 Toilet Transfer (QC): 6 Does the Patient Walk: Yes Walk 10 feet (QC): 6 Walk 50ft with 2 Turns (QC): 6 Walk 150 ft (QC): 6 PT Plan Problem List Problem List: Activity Tolerance, Functional Strength, Safety, Balance, Gait, Transfer, Bed Mobility, ROM Treatment/Plan Treatment Plan: Continue Plan of Care Treatment Plan: Bed Mobility, Education, Functional Activity Fahad, Functional Strength, Gait, Safety, Therapeutic Exercise, Transfers Treatment Duration: Jul 11, 2022 Frequency: 11 times per week Estimated Hrs Per Day: 1 hour per day Patient and/or Family Agrees t: Yes Safety Risks/Education Patient Education: Gait Training, Transfer Techniques, Correct Positioning, Safety Issues Teaching Recipient: Patient Teaching Methods: Demonstration, Discussion Response to Teaching: Reinforcement Needed Discharge Recommendations Plan Patient will perform endurance and balance training, bed mobility and transfer training, functional strengthening and gait training in order to be independent at home. Therapy Discharge Recommendati: Home & Family, Post Acute PT Time Time In: 1326 Time Out: 1345 DATE: Jul 04, 2022 Total Billed Treatment Time: 19 Total Billed Treatment 1 visit EVL 19min CALLUM LOPEZ PT Jul 04, 2022 14:05
[2022-07-04] MEDS ORDERED: ALPRAZolam 1 MG (XANAX) TAB PO PRN (15:15)
--- NOTE | 2022-07-04 15:57 | Consultation - Hospitalist ---
HPI History of Present Illness: HPI/Chief Complaint Patient is 58-year-old female past medical history of hypertension, restless leg, osteoarthritis who was admitted to the hospital for knee replacement by Dr. Marin. I am consulted for medical management. She reports that she is doing very well postoperatively. She is already worked with [employer] and has walked down the ayala. She also got up and walked to the bathroom. She reports that her pain is well controlled with her current regimen. Her blood pressure is mildly elevated but she associates that with her pain. She has no complaints at this time. Source: patient Exam Limitations: no limitations Date Seen 07/04/22 Attending Physician Rafael López DO PCP Admitting Physician: Enrique Marin MD Attending Physician: Enrique Marin MD Referring Physician Date of Admission Jul 04, 2022 at 7:59 am Home Medications & Allergies Home Medications Reviewed patient Home Medication Reconciliation performed by pharmacy medication reconciliations monogram technician and/or nursing. Patients Allergies have been reviewed. Allergies Allergies Coded Allergies codeine (Verified Allergy, Mild, ITCHY, 06/27/22) Past Kylmduz-Ghtkxw-Mrythw Hx Patient Social History Tobacco Use?: No Smoking Status: Former Smoker Use of E-Cig and/or Vaping dev: No Substance use?: No Alcohol Use?: Yes Alcohol Frequency: Rarely Pt feels they are or have been: No Seasonal Allergies Seasonal Allergies: Yes Current Status Advance Directives: No Communicates: Verbally Primary Language: Ghanaian Sensory deficits: Vision impairment Implanted or Applied Medical D: None Past Medical History Surgeries: Tonsillectomy Currently Using CPAP: No Currently Using BIPAP: No Arthritis, Chronic Back Pain Anxiety, Depression Blood Disorders: No Family Medical History No Pertinent Family Hx Review of Systems Constitutional: no symptoms reported Respiratory: no symptoms reported Cardiovascular: no symptoms reported Gastrointestinal: no symptoms reported Genitourinary: no symptoms reported Musculoskeletal: see HPI, joint pain Skin: no symptoms reported Psychiatric/Neurological: No Symptoms Reported Physical Exam Physical Exam Vital Signs Vital Signs - First Documented Capillary Refill : Less Than 3 Seconds Height, Weight, BMI Height: 4'11.00" Weight: 233lbs. oz. 105.656096vj; 46.07 BMI Method:Stated General Appearance: No Apparent Distress, WD/WN, Obese HEENT: PERRL/EOMI, Moist Mucous Membranes Neck: Normal Inspection Respiratory: Lungs Clear, No Respiratory Distress Cardiovascular: Regular Rate, Rhythm, No JVD, No Murmur Gastrointestinal: Normal Bowel Sounds, Non Tender, Soft Back: Other (surgical dressing in place) Neurologic/Psychiatric: Alert, Oriented x3, Normal Mood/Affect Results Results/Procedures Labs Laboratory Tests 07/05/22 05:36 Patient resulted labs reviewed. Imaging: Reviewed Imaging Report Imaging [facility], [place] NAME: TYRONE CASTRO [facility] REC#: [id number] PT STATUS: ADM IN : 1955 PHYSICIAN: CECILIA MCKEON ADMIT DATE: 07/04/22 Signed Date of Exam:07/04/22 KNEE, LEFT, 2 VIEWS (AP & LAT) KNEE, LEFT, 2 VIEWS (AP LAT) INDICATION: Postop surveillance after knee arthroplasty. COMPARISON: None available. TECHNIQUE: Two views of the left knee. FINDINGS: Total knee arthroplasty with patellar resurfacing. No acute periprosthetic fracture. Prosthesis is normal in alignment. Expected postoperative soft tissue gas and joint fluid. IMPRESSION: Expected appearance status post total knee arthroplasty. 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 Please call for any questions or needs. Diagnosis/Problems Diagnosis/Problems (1) Osteoarthritis of left knee KATIE STEPHENSON MD Jul 04, 2022 15:57
--- NOTE | 2022-07-04 16:33 | Diagnostic Imaging Report ---
KNEE, LEFT, 2 VIEWS (AP LAT) INDICATION: Postop surveillance after knee arthroplasty. COMPARISON: None available. TECHNIQUE: Two views of the left knee. FINDINGS: Total knee arthroplasty with patellar resurfacing. No acute periprosthetic fracture. Prosthesis is normal in alignment. Expected postoperative soft tissue gas and joint fluid. IMPRESSION: Expected appearance status post total knee arthroplasty. Dictated by: Dictated on workstation # [id number]
[2022-07-04] MEDS: rOPINIRole 1 MG (REQUIP) TABLET PO SCH ×2 (16:55→20:08)
[2022-07-04] MEDS: CEFUROXIME INJECTION 750 MG in NS (IVPB) 50 ML IV SCH ×2 (17:01→23:47)
[2022-07-04] MEDS ORDERED: FLU QUAD HIGH DOSE 240 MCG/0.7 ML 2022-23 (FLUZONE) IM ONE (17:30)
[2022-07-04] MEDS: oxyCODONE/APAP 5/325MG (PERCOCET 5) TABLET PO PRN (20:08)
--- NOTE | 2022-07-04 21:15 | OPERATIVE REPORT ---
DATE OF SERVICE: 07/04/2022 PREOPERATIVE DIAGNOSIS: Left knee primary osteoarthritis. POSTOPERATIVE DIAGNOSIS: Left knee primary osteoarthritis. PROCEDURE: Left total knee arthroplasty. SURGEON: Enrique Zepeda MD ESCROW OFFICER: Moises Sebastian, who assisted throughout the procedure and closed the incision. ANESTHESIA: General endotracheal by Marychuy Hubbard CRNA. TOURNIQUET TIME: 65 minutes at 300 mmHg. ESTIMATED BLOOD LOSS: Minimal. DRAINS: None. COMPLICATIONS: None. POSTOPERATIVE PLAN: Routine total knee arthroplasty protocol. The patient was transported to recovery room awake and stable condition. MATERIAL: Cemented size 4 femur, cemented size 3 tibia with a 14 mm insert and a 32 mm patellar button. STATEMENT OF MEDICAL NECESSITY: The patient is a 66-year-old female with longstanding progressive left knee pain. She had undergone treatment with injections, anti-inflammatories and rest without relief. Radiographs revealed severe lateral and patellofemoral arthrosis. Due to functional impairment and failure to improve with conservative measures, the patient elected to proceed with surgical intervention. DESCRIPTION OF PROCEDURE: After risks and benefits of the procedure were discussed and questions were answered, informed consent was signed and placed on the chart. The operative site was confirmed in the preoperative holding area and initialed by surgeon. DESCRIPTION OF PROCEDURE: The patient was then transported to the operating room and after adequate levels of general endotracheal anesthetic was obtained, a timeout was called, confirming the operative site. The left lower extremity was prepped and draped in the usual sterile fashion with the leg elevated and the knee flexed, tourniquet was inflated to 300 mmHg. Standard anterior approach was utilized. Hemostasis obtained with cautery. Medial parapatellar arthrotomy was performed, leaving a 1 cm cuff on the patella for later reattachment portion of the fat pad was resected. A subperiosteal release was performed in the proximal medial tibia, being careful to stay on the bony surface. The ACL was resected. The custom block was then placed and had excellent coverage. This was pinned into position. The distal cut was made and the 4 cutting block was placed parallel to the epicondylar axis and the previously prepared drill holes. Cuts were then made from posterior to anterior. Subperiosteal release was then carefully performed on the posterior distal femur, being careful to stay on the bony surface. The tibial block was then placed and again had excellent coverage. This was pinned into position. The cut was made. The 3 baseplate was placed. The drop jason transected the intermalleolar axis and this was prepared with the drill and keel punch. The femoral trial was placed. The trochlear cut was made. The patella was prepared by resecting 10 mm off the under surface. The peg hole were drilled and the trial was placed. The knee was taken through range of motion with a 14 mm insert, full extension was easily obtained 120 degrees of flexion with gravity was easily obtained. The patella tracked well. There was no anterior/posterior or medial/lateral laxity in flexion or extension. The trials were removed. The joint was irrigated with pulse lavage. The periarticular block was placed in the posterior capsule, medial and lateral retinaculum extensor mechanism subcutaneous tissues. The bony ends were irrigated. The tibial baseplate was cemented into position. Excess cement was removed. Superior surface was irrigated and dried and the polyethylene insert was placed. The distal femur was irrigated and dried and the femoral prosthesis was cemented into position. Excess cement was removed. The knee was brought out in full extension until the cement cured. The undersurface of the patella was irrigated and dried and the patellar button was cemented into position. Excess cement was removed. Once cement had cured, the knee was taken through range of motion, full extension was easily obtained, 120 degrees of flexion with gravity was obtained. The patella tracked well. There was no anterior/posterior or medial/lateral laxity in flexion or extension. The joint was further irrigated with pulse lavage. The arthrotomy was closed with #2 Tevdek in yhojiw-ag-suzlc fashion. The knee was flexed. The repair was stable. Subcutaneous tissues were irrigated using a total of 6 liters throughout the procedure. 0 Vicryl was used for deep subcutaneous layer, 2-0 Vicryl was used for the superficial subcutaneous layer, purvi used on the skin. Soft dressing was applied. The tourniquet was deflated and the patient was transported to recovery room awake and stable condition. Job ID: [id number] DocumentID: [id number] Dictated Date: 07/04/2022 10:49:43 Incident Response Coordinator Date: 07/04/2022 21:14:00 Dictated By: ENRIQUE ZEPEDA MD
[2022-07-05] MEDS: oxyCODONE/APAP 5/325MG (PERCOCET 5) TABLET PO PRN ×6 (00:08→21:08)
[2022-07-05 03:55] VITALS: BP 103/65
[2022-07-05] MEDS: rOPINIRole 1 MG (REQUIP) TABLET PO SCH ×4 (05:29→21:01)
[2022-07-05] MEDS: NS IV 1000 ML 1,000 ML IV SCH ×2 (05:29→17:34)
[2022-07-05 05:59] LABS: HEMOGLOBIN 11.8 g/dL (11.5-16.0)
[2022-07-05 07:58] VITALS: BP 120/57
--- NOTE | 2022-07-05 08:02 | Progress Note ---
Standard Progress Note Progress Notes/Assess & Plan Date Seen by a Provider: Jul 05, 2022 Time Seen by a Provider: 08:01 Progress/Assessment & Plan post op check no complaints radiographs--HW well positioned without fracture LLE-2 plus DP pulse with brisk cap refill intact DF and PF of toes and ankle sensation intact to light touch s/p LTKA mobilize as able Final Diagnosis no complaints Vital Signs Date Time Temp Pulse Resp B/P (MAP) Pulse Ox O2 Delivery O2 Flow Rate FiO2 07/05/22 07:58 36.9 68 18 120/57 (78) 92 07/05/22 03:55 36.9 63 18 103/65 (78) 93 Room Air 07/04/22 23:43 37.0 72 18 126/68 (87) 96 Room Air 07/04/22 20:49 Room Air 07/04/22 20:48 18 07/04/22 19:18 36.9 66 18 116/56 (76) 94 Room Air 07/04/22 15:40 36.7 60 20 117/57 (77) 96 Room Air 07/04/22 13:53 18 07/04/22 13:53 18 07/04/22 12:15 36.4 58 16 127/61 (83) 100 Nasal Cannula 3.00 07/04/22 12:00 Nasal Cannula 3.00 07/04/22 12:00 36.2 20 120/84 (96) 98 Nasal Cannula 2.00 07/04/22 12:00 96 Room Air 07/04/22 12:00 36.4 58 16 127/61 (83) 100 Nasal Cannula 3.00 3.00 07/04/22 11:50 20 124/86 (99) 96 Nasal Cannula 2.00 07/04/22 11:45 Nasal Cannula 3.00 07/04/22 11:40 20 130/89 (103) 96 OxyMask 3.00 07/04/22 11:30 OxyMask 3.00 07/04/22 11:30 20 122/95 (104) 98 OxyMask 3.00 07/04/22 11:20 20 114/95 (101) 98 OxyMask 3.00 07/04/22 11:15 OxyMask 3.00 07/04/22 11:10 20 145/60 (88) 98 OxyMask 5.00 07/04/22 11:00 OxyMask 3.00 07/04/22 11:00 20 145/60 (88) 100 OxyMask 5.00 07/04/22 10:50 20 135/90 (105) 100 OxyMask 5.00 07/04/22 10:45 36.2 20 132/60 (84) 100 OxyMask 5.00 07/04/22 10:45 OxyMask 5.00 07/04/22 08:05 96 Room Air 07/04/22 08:05 36.2 72 18 164/70 (101) 96 Room Air I & O 07/05/22 07:00 Intake Total 2635 ml Balance 2635 ml Laboratory Tests Test 07/05/22 05:36 Range/Units Hemoglobin 11.8 11.5-16.0 g/dL Hematocrit 38 35-52 % LLE--dressing intact NVI distally no calf tenderness s/p LTKA PT/OT RASHID ZEPEDA MD Jul 05, 2022 08:02
[2022-07-05] MEDS: ENOXAPARIN INJECTION 30 MG/0.3 ML SYR SC SCH ×2 (08:35→21:01)
[2022-07-05] MEDS: SENNA W/DOCUSATE (SENOKOT S) TABLET PO SCH ×2 (08:36→21:01)
[2022-07-05] MEDS: ASPIRIN E.C. 81 MG (ECOTRIN) TAB PO SCH (08:36)
--- NOTE | 2022-07-05 10:11 | Physical Therapy Daily Note ---
PT Daily Note-Current Subjective Patient agrees to PT. Pain Numeric Pain Scale: 5-Moderate Pain Location: Left Location Body Site: Knee Pain Description: Acute Section J - Health Conditions 1. Rarely or not at all 2. Occasionally 3. Frequently 4. Almost constantly 8. Unable to answer Pain Effect on Sleep: 2 Pain Interference with Therapy: 2 Pain Interference w/Day-to-Day: 2 Mental Status Patient Orientation: Normal For Age Attachments: IV Transfers SCALE: Activities may be completed with or without assistive devices. 3-Jwydvquguf-nbnfnyv completes the activity by him/herself with no assistance from a helper. 5-Set-up or Clean-up Assistance-helper sets up or cleans up; patient completes activity. [place] assists only prior to or following the activity. 4-Supervision or Touching Assistance-helper provides verbal cues and/or t ouching/steadying and/or contact guard assistance as patient completes activity. Assistance may be provided throughout the activity or intermittently. 3-Partial/Moderate Assistance-helper does LESS THAN HALF the effort. [place] lifts, holds or supports trunk or limbs, but provides less than half the effort. 2-Substantial/Maximal Assistance-helper does MORE THAN HALF the effort. [place] lifts or holds trunk or limbs and provides more than half the effort. 6-Uwxjgmybk-osvtvf does ALL the effort. Patient does none of the effort to complete the activity. Or, the assistance of 2 or more helpers is required for the patient to complete the activity. If activity was not attempted, code reason: 7-Patient Refused. 9-Not Applicable-not attempted and the patient did not perform the activity before the current illness, exacerbation or injury. 10-Not Attempted due to Environmental Limitations-(lack of equipment, weather restraints, etc.). 88-Not Attempted due to Medical Conditions or Safety Concerns. Lying to Sitting/Side of Bed(Q: 6 Sit to Stand (QC): 4 Chair/Gto-jq-Rlbsu Xfer(QC): 4 Toilet Transfer (QC): 4 Weight Bearing Right Lower Extremity: Right Full Weight Bearing Left Lower Extremity: Left Weight Bearing/Tolerated Gait Training Distance: 150' Walk 10 feet (QC): 4 Walk 50 ft with 2 Turns(QC): 4 Walk 150 ft (QC): 4 Gait Assistive Device: FWW very slow, antalgic Exercises Seated Therapy Exercises: Ankle pumps, Long arc quads, Hip flexion Seated Reps: 15 (x 2 sets) Assessment Patient requires time to complete all functional tasks and is up in recliner with needs met. Patient progressing with treatment plan. PT Wild Animal Caretaker Goals Wild Animal Caretaker Goals PT Wild Animal Caretaker Goals Time Frame: Jul 11, 2022 Roll Left & Right (QC): 6 Sit to Lying (QC): 6 Lying-Sitting on Side/Bed(QC): 6 Sit to Stand (QC): 6 Chair/Mzu-bq-Proke Xfer(QC): 6 Toilet Transfer (QC): 6 Does the Patient Walk: Yes Walk 10 feet (QC): 6 Walk 50ft with 2 Turns (QC): 6 Walk 150 ft (QC): 6 PT Plan Treatment/Plan Treatment Plan: Continue Plan of Care Treatment Plan: Bed Mobility, Education, Functional Activity Fahad, Functional Strength, Gait, Safety, Therapeutic Exercise, Transfers Treatment Duration: Jul 11, 2022 Frequency: 11 times per week Estimated Hrs Per Day: 1 hour per day Patient and/or Family Agrees t: Yes Time Time In: 815 Time Out: 843 DATE: Jul 05, 2022 Total Billed Treatment Time: 28 Total Billed Treatment 1 visit EX 10 min GT 18 min FRANCISCA JENNINGS PT Jul 05, 2022 10:11
--- NOTE | 2022-07-05 11:35 | Occupational Therapy Eval ---
OT Evaluation-General/PLF Medical Diagnosis Admission Date Jul 04, 2022 at 07:59 Medical Diagnosis: L TKA Onset Date: Jul 04, 2022 Therapy Diagnosis Therapy Diagnosis: Reduced ADL status Height/Weight Height (Feet): 4 Height (Inches): 11.00 Weight (Pounds): 233 Precautions Precautions/Isolations: Fall Prevention, Standard Precautions Referral Physician: Romulo Referral Reason: Evaluation/Treatment Medical History Pertinent Medical History: Arthritis, HTN Current History Pt is s/p L TKA (07/04/22). Pt changes houses often between her house and her boyfriends house. They live together at his house during the week and her house on the weekends. Post d/c they will be living in his home. She was independent with all ADLs/IADLs prior to surgery. She used a cane at baseline as well. Reviewed History: Yes Social History Home: Single Level Current Living Status: Significant Other Entry Into Home: Stairs Without Railing Steps Into Home: 2 ADL-Prior Level of Function SCALE: Activities may be completed with or without assistive devices. 4-Lkdjopcexb-xdrkvch completes the activity by him/herself with no assistance from a helper. 5-Set-up or Clean-up Assistance-helper sets up or cleans up; patient completes activity. [place] assists only prior to or following the activity. 4-Supervision or Touching Assistance-helper provides verbal cues and/or touching/steadying and/or contact guard assistance as patient completes activity. Assistance may be provided throughout the activity or intermittently. 3-Partial/Moderate Assistance-helper does LESS THAN HALF the effort. [place] lifts, holds or supports trunk or limbs, but provides less than half the effort. 2-Substantial/Maximal Assistance-helper does MORE THAN HALF the effort. [place] lifts or holds trunk or limbs and provides more than half the effort. 3-Dzcxpcrxz-acfwhk does ALL the effort. Patient does none of the effort to complete the activity. Or, the assistance of 2 or more helpers is required for the patient to complete the activity. If activity was not attempted, code reason: 7-Patient Refused. 9-Not Applicable-not attempted and the patient did not perform the activity before the current illness, exacerbation or injury. 10-Not Attempted due to Environmental Limitations-(lack of equipment, weather restraints, etc.). 88-Not Attempted due to Medical Conditions or Safety Concerns. Self Care: Independent Functional Cognition: Independent DME/Equipment: Bath Chair, Shower Drive Self: Yes OT Current Status Subjective Pt laying in bed upon arrival with boyfriend present. She agreed to therapy eval. Appearance Pt left laying in bed with all needs within reach. 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 Good seated balance. Pt able to doff R sock, but unable to don R or doff/don L sock. Boyfriend in room, adamant that he will help her at home and that they will have no problems at home. She does lack ROM at hips, but she stated "that's always been a challenge for me" when talking about putting on socks. AE may be necessary to educate on to assist in dressing tasks once d/c. She declines any OOB activity stating she already worked with PT and that they will be back later today also. She stated, "I just want to nap". Pt could benefit from short term skilled OT services to assist in independence with ADLs, and AE education. Education OT Patient Education: Correct positioning, Energy conservation, Modified ADL techniques, Progress toward Goal/Update tx plan, Purpose of tx/functional activities, Reviewed precautions, Rehab process Teaching Recipient: Patient Teaching Methods: Demonstration, Discussion Response to Teaching: Verbalize Understanding, Return Demonstration OT Tonnage Compilation Clerk Goals Tonnage Compilation Clerk Goals Time Frame: Jul 12, 2022 Eating (QC): 6 Oral Hygiene (QC): 6 Toileting Hygiene (QC): 6 Shower/Bathe Self (QC): 5 Upper Body Dressing (QC): 6 Lower Body Dressing (QC): 6 On/Off Footwear (QC): 5 Additional Goals: 1-Demonstrate ADL Tasks, 2-Verbalize Understanding, 3- ImproveStrength/Fahad 1=Demonstrate adherence to instructed precautions during ADL tasks. 2=Patient will verbalize/demonstrate understanding of assistive devices/modifications for ADL. 3=Patient will improve strength/tolerance for activity to enable patient to perform ADL's. OT Education/Plan Problem List/Assessment Assessment: Decreased Activ Tolerance, Impaired Funct Balance, Impaired I ADL's, Impaired Self-Care Skills Discharge Recommendations Plan/Recommendations: Continue POC Treatment Plan/Plan of Care Treatment,Training & Education: Yes Patient would benefit from OT for education, treatment and training to promote independence in ADL's, mobility, safety and/or upper extremity function for ADL's. Plan of Care: ADL Retraining, Caregiver Training, Functional Mobility, Group Exercise/Act as Ind, UE Funct Exercise/Act Treatment Duration: Jul 12, 2022 Frequency: 3 times per week (3-5x/week) Estimated Hrs Per Day: .25 hour per day Agreement: Yes Rehab Potential: Fair Time Start Time: 11:04 Stop Time: 11:21 DATE: Jul 05, 2022 Total Time Billed (hr/min): 17 Billed Treatment Time 1 visit Zhanna Roberts OT Jul 05, 2022 11:35
[2022-07-05 12:00] VITALS: BP 142/65
[2022-07-05] MEDS ORDERED: DICL75TA2 PO (13:48)
[2022-07-05] MEDS ORDERED: TURM500T PO (13:48)
[2022-07-05] MEDS ORDERED: ROPI1TAB PO (13:48)
[2022-07-05] MEDS ORDERED: HYDR25TA4 PO (13:48)
[2022-07-05] MEDS ORDERED: TOLT2TAB19 PO (13:48)
[2022-07-05] MEDS ORDERED: TRAM50TA3 PO (13:48)
[2022-07-05] MEDS ORDERED: DICL100G13 TP (13:51)
--- NOTE | 2022-07-05 15:05 | Physical Therapy Daily Note ---
PT Daily Note-Current Subjective Patient in bed pre-tx, reports pain but did not score, agrees to PT. Pain Section J - Health Conditions 1. Rarely or not at all 2. Occasionally 3. Frequently 4. Almost constantly 8. Unable to answer Pain Effect on Sleep: 2 Pain Interference with Therapy: 2 Pain Interference w/Day-to-Day: 2 Appearance Patient in bed post-tx with nurse call, phone, tray, all needs met. Mental Status Patient Orientation: Person, Place, Situation Attachments: Polar Pack, IV Transfers SCALE: Activities may be completed with or without assistive devices. 1-Sgetgkkzvi-xqalawu completes the activity by him/herself with no assistance from a helper. 5-Set-up or Clean-up Assistance-helper sets up or cleans up; patient completes activity. [place] assists only prior to or following the activity. 4-Supervision or Touching Assistance-helper provides verbal cues and/or touching/steadying and/or contact guard assistance as patient completes activity. Assistance may be provided throughout the activity or intermittently. 3-Partial/Moderate Assistance-helper does LESS THAN HALF the effort. [place] lifts, holds or supports trunk or limbs, but provides less than half the effort. 2-Substantial/Maximal Assistance-helper does MORE THAN HALF the effort. [place] lifts or holds trunk or limbs and provides more than half the effort. 6-Fmeubncva-btfasq does ALL the effort. Patient does none of the effort to comp lete the activity. Or, the assistance of 2 or more helpers is required for the patient to complete the activity. If activity was not attempted, code reason: 7-Patient Refused. 9-Not Applicable-not attempted and the patient did not perform the activity before the current illness, exacerbation or injury. 10-Not Attempted due to Environmental Limitations-(lack of equipment, weather restraints, etc.). 88-Not Attempted due to Medical Conditions or Safety Concerns. Roll Left & Right (QC): 4 Sit to Lying (QC): 4 Lying to Sitting/Side of Bed(Q: 4 Sit to Stand (QC): 4 SBA with bed mobility and transfers Weight Bearing Right Lower Extremity: Right Full Weight Bearing Left Lower Extremity: Left Weight Bearing/Tolerated Gait Training Does the Patient Walk?: Yes Distance: 175' Walk 10 feet (QC): 4 Walk 50 ft with 2 Turns(QC): 4 Walk 150 ft (QC): 4 Gait Persons Needed: 1 Gait Assistive Device: FWW SBA with ambulation, patient walks with slower gait speed, decreased foot clearance, and decreased step length, still has slight limp on L side Exercises Supine Ex: Ankle pumps, Quad Set, Heel Slides, Straight leg raise Supine Reps: 20 Seated Therapy Exercises: Long arc quads Seated Reps: 20 Treatments Gt, LE Strengthening Assessment Current Status: Fair Progress Patient still has a limp and needs Min A raising leg during SLR and heel slides. Patient knee flexion approx 90 degrees, knee extension approx 10 degrees from full extension. Patient requires standing breaks during ambulation to catch breath. PT Leacher Goals Leacher Goals PT Leacher Goals Time Frame: Jul 11, 2022 Roll Left & Right (QC): 6 Sit to Lying (QC): 6 Lying-Sitting on Side/Bed(QC): 6 Sit to Stand (QC): 6 Chair/Ubq-ei-Ikzgw Xfer(QC): 6 Toilet Transfer (QC): 6 Does the Patient Walk: Yes Walk 10 feet (QC): 6 Walk 50ft with 2 Turns (QC): 6 Walk 150 ft (QC): 6 PT Plan Problem List Problem List: Activity Tolerance, Functional Strength, Safety, Balance, Gait, Transfer, Bed Mobility, ROM Treatment/Plan Treatment Plan: Continue Plan of Care Treatment Plan: Bed Mobility, Education, Functional Activity Fahad, Functional Strength, Gait, Safety, Therapeutic Exercise, Transfers Treatment Duration: Jul 11, 2022 Frequency: 11 times per week Estimated Hrs Per Day: 1 hour per day Patient and/or Family Agrees t: Yes Safety Risks/Education Patient Education: Gait Training, Transfer Techniques, Correct Positioning, Safety Issues Teaching Recipient: Patient Teaching Methods: Demonstration, Discussion Response to Teaching: Reinforcement Needed Time Time In: 1418 Time Out: 1446 DATE: Jul 05, 2022 Total Billed Treatment Time: 28 Total Billed Treatment 1 visit GT 14min EX 14min FRANCISCA JENNINGS PT Jul 05, 2022 15:05
[2022-07-05 15:09] VITALS: BP 144/66
[2022-07-05 19:16] VITALS: BP 131/61
[2022-07-06] VITALS: BP 120/57
[2022-07-06] MEDS: oxyCODONE/APAP 5/325MG (PERCOCET 5) TABLET PO PRN (03:07)
[2022-07-06] MEDS: rOPINIRole 1 MG (REQUIP) TABLET PO SCH (03:28)
[2022-07-06 04:07] VITALS: BP 135/83
--- NOTE | 2022-07-06 05:02 | DISCHARGE SUMMARY ---
DIAGNOSES: 1. Left knee primary osteoarthritis. 2. Dysmorphic mood. 3. Anxiety. 4. Depression. 5. Arthritis. PROCEDURE: Left total knee arthroplasty. SUMMARY OF HOSPITAL COURSE: The patient is a 66-year-old female, who underwent a left total knee arthroplasty on date of admission. Postoperatively, she did well. At the time of discharge, wound was clean and dry. She had no calf tenderness. Negative Homans sign. She was tolerating her diet well and tolerating pain with oral pain medication. CONDITION AT DISCHARGE: Good. DISCHARGE DIET: Regular. FOLLOWUP: In 3 weeks. ACTIVITIES: Weightbearing as tolerated with a walker. Home physical therapy has been arranged. DISCHARGE MEDICATIONS: Her home medications are Percocet as needed for pain and one aspirin per day. Job ID: [id number] DocumentID: [id number] Dictated Date: 07/05/2022 08:01:03 Modular Set Crew Member Date: 07/06/2022 05:00:00 Dictated By: RASHID ZEPEDA MD
[2022-07-06 05:38] LABS: HEMOGLOBIN 11.3 g/dL (11.5-16.0)
[2022-07-06] MEDS: NS IV 1000 ML 1,000 ML IV SCH (06:08)
--- NOTE | 2022-07-06 07:07 | Progress Note ---
Standard Progress Note Progress Notes/Assess & Plan Date Seen by a Provider: Jul 06, 2022 Time Seen by a Provider: 07:06 Progress/Assessment & Plan post op check no complaints radiographs--HW well positioned without fracture LLE-2 plus DP pulse with brisk cap refill intact DF and PF of toes and ankle sensation intact to light touch s/p LTKA mobilize as able Final Diagnosis no complaints Vital Signs Date Time Temp Pulse Resp B/P (MAP) Pulse Ox O2 Delivery O2 Flow Rate FiO2 07/06/22 04:07 36.8 74 18 135/83 (100) 95 Room Air 07/06/22 00:00 36.9 78 18 120/57 (78) 93 Room Air 07/05/22 21:00 Room Air 07/05/22 21:00 20 07/05/22 19:16 36.5 68 18 131/61 (84) 94 Room Air 0.00 0.00 07/05/22 18:00 20 07/05/22 15:09 36.3 68 20 144/66 (92) 94 Room Air 0.00 0.00 07/05/22 12:00 36.6 67 18 142/65 (90) 98 07/05/22 09:00 Room Air 07/05/22 07:58 36.9 68 18 120/57 (78) 92 I & O 07/06/22 07:00 Intake Total 1950 ml Balance 1950 ml Laboratory Tests Test 07/06/22 05:11 Range/Units Hemoglobin 11.3 L 11.5-16.0 g/dL Hematocrit 37 35-52 % LLE--incision clean and dry no calf tenderness neg Manuel's s/p LTKA doing well DC after PT today RASHID ZEPEDA MD Jul 06, 2022 07:07
[2022-07-06 07:12] VITALS: BP 146/55
[2022-07-06] MEDS ORDERED: morphine INJ 4 MG/ML 1 ML (VIAL/SYRINGE) IVP PRN (07:15)
[2022-07-06] MEDS: ENOXAPARIN INJECTION 30 MG/0.3 ML SYR SC SCH (07:48)
[2022-07-06] MEDS: SENNA W/DOCUSATE (SENOKOT S) TABLET PO SCH (07:49)
[2022-07-06] MEDS: ASPIRIN E.C. 81 MG (ECOTRIN) TAB PO SCH (07:49)
--- NOTE | 2022-07-06 09:44 | Physical Therapy Daily Note ---
PT Daily Note-Current Subjective Patient agrees to PT. Pain Section J - Health Conditions 1. Rarely or not at all 2. Occasionally 3. Frequently 4. Almost constantly 8. Unable to answer Pain Effect on Sleep: 1 Pain Interference with Therapy: 1 Pain Interference w/Day-to-Day: 1 Mental Status Patient Orientation: Normal For Age Transfers SCALE: Activities may be completed with or without assistive devices. 7-Caicfqmzab-mcvcfjo completes the activity by him/herself with no assistance from a helper. 5-Set-up or Clean-up Assistance-helper sets up or cleans up; patient completes activity. [place] assists only prior to or following the activity. 4-Supervision or Touching Assistance-helper provides verbal cues and/or touching/steadying and/or contact guard assistance as patient completes activity. Assistance may be provided throughout the activity or intermittently. 3-Partial/Moderate Assistance-helper does LESS THAN HALF the effort. [place] lifts, holds or supports trunk or limbs, but provides less than half the effort. 2-Substantial/Maximal Assistance-helper does MORE THAN HALF the effort. [place] lifts or holds trunk or limbs and provides more than half the effort. 0-Fgtbhiius-qrryyj does ALL the effort. Patient does none of the effort to complete the activity. Or, the assistance of 2 or more helpers is required for the patient to complete the activity. If activity was not attempted, code reason: 7-Patient Refused. 9-Not Applicable-not attempted and the patient did not perform the activity before the current illness, exacerbation or injury. 10-Not Attempted due to Environmental Limitations-(lack of equipment, weather restraints, etc.). 88-Not Attempted due to Medical Conditions or Safety Concerns. Sit to Stand (QC): 6 Weight Bearing Right Lower Extremity: Right Full Weight Bearing Left Lower Extremity: Left Weight Bearing/Tolerated Gait Training Distance: 250' Walk 10 feet (QC): 6 Walk 50 ft with 2 Turns(QC): 6 Walk 150 ft (QC): 6 Exercises Supine Ex: Quad Set, Heel Slides, Straight leg raise Supine Reps: 15 (AAROM left LE) Seated Therapy Exercises: Ankle pumps, Long arc quads Seated Reps: 15 Assessment Per SW, home health will not begin until next Saturday. PT educated patient and family on importance of performing HEP issued at preop. Patient and family voice understanding. Patient improving with treatment plan with slow progress with left knee flexion ROM. PT Group Home Goals Group Home Goals PT Laundry Housekeeper Goals Time Frame: Jul 11, 2022 Roll Left & Right (QC): 6 Sit to Lying (QC): 6 Lying-Sitting on Side/Bed(QC): 6 Sit to Stand (QC): 6 Chair/Xys-ny-Tpaqe Xfer(QC): 6 Toilet Transfer (QC): 6 Does the Patient Walk: Yes Walk 10 feet (QC): 6 Walk 50ft with 2 Turns (QC): 6 Walk 150 ft (QC): 6 PT Plan Treatment/Plan Treatment Plan: Discontinue PT, goals met Treatment Plan: Bed Mobility, Education, Functional Activity Fahad, Functional Strength, Gait, Safety, Therapeutic Exercise, Transfers Treatment Duration: Jul 11, 2022 Frequency: 11 times per week Estimated Hrs Per Day: 1 hour per day Patient and/or Family Agrees t: Yes Time Time In: 830 Time Out: 855 DATE: Jul 06, 2022 Total Billed Treatment Time: 25 Total Billed Treatment 1 visit EX 12 min GT 13 min FRANCISCA JENNINGS PT Jul 06, 2022 09:44
== END 2022-07-06 09:45 | disposition home health service (06) | DRG 470 ==
LOC: 4TH 07:59 → SURG 08:00 → 4TH 12:00
PROVIDERS: ADMIT Orthopaedic Surgery; ATTEND Orthopaedic Surgery
PROC: 0SRD0J9 Replacement of Left Knee Joint with Synthetic Substitute, Cemented, Open Approach (ICD-10-PCS; principal; 2022-07-04 09:06)
DX: M17.12 Unilateral primary osteoarthritis, left knee (principal); F45.22 Body dysmorphic disorder; F41.9 Anxiety disorder, unspecified; F32.A Depression, unspecified; I10 Essential (primary) hypertension; G25.81 Restless legs syndrome; Z87.891 Personal history of nicotine dependence; G89.29 Other chronic pain; M54.9 Dorsalgia, unspecified
CPT/HCPCS: 36415; 73560; 85014; 85018; 86850; 86900; 86901

== ENCOUNTER → 2022-08-07 | Outpatient (CLI) | payer MEDICARE, OTHER ==
[~2022-08-07] MED LIST changes: +DICL75TA2 PO; +HYDR25TA4 PO; -ONDANSETRON 4 MG/2 ML (SDV) Z0FRAN IVP PRN; +TOLT2TAB19 PO; +TRAM50TA3 PO; +TURM500T PO; -diphenhydrAMINE 50 MG/ML INJ (BENADRYL) IVP PRN; -morphine PCA 100 MG/100 ML BAG IV PRN
--- NOTE | 2022-08-10 08:59 | Diagnostic Imaging Report ---
PROCEDURE: CT right lower extremity without contrast. TECHNIQUE: Axially acquired CT was obtained through the right lower extremity without intravenous contrast. Coronal and sagittal reformations were also performed. Auto Exposure Controls were utilized during the CT exam to meet ALARA standards for radiation dose reduction. INDICATION: Right knee osteoarthritis COMPARISON: None FINDINGS: No acute fracture is seen in the right knee. There are severe degenerative changes in the medial and patellofemoral compartments and moderate to severe degenerative change in the lateral compartment. This includes joint space loss, subchondral sclerosis and prominent marginal osteophytes. There is a moderate right knee joint effusion. There is mild generalized muscular atrophy. No acute osseous abnormalities seen in the right hip or right ankle. There is mild degenerative change. There is calcific atherosclerosis. IMPRESSION: 1. Advanced tricompartmental degenerative changes in the right knee. 2. Moderate right knee joint effusion. Dictated by: Dictated on workstation # [id number]
== END ==
LOC: RAD 15:45
PROVIDERS: ATTEND Orthopaedic Surgery
DX: M17.0 Bilateral primary osteoarthritis of knee (principal)
CPT/HCPCS: 73700

== ENCOUNTER 2022-08-29 08:24 | Outpatient (CLI) | payer MEDICARE, OTHER ==
[~2022-08-29] VITALS: Ht 149.8 cm; Wt 102.0 kg
[2022-08-30 13:56] LABS: BILIRUBIN,URINE NEGATIVE (NEGATIVE); CLARITY,URINE CLEAR; COLOR,URINE YELLOW; GLUCOSE, URINE (UA) NEGATIVE (NEGATIVE); KETONES,URINE NEGATIVE (NEGATIVE); LEUKOCYTE ESTERASE ,URINE 1+ (NEGATIVE); NITRITE,URINE NEGATIVE (NEGATIVE); PROTEIN,URINE NEGATIVE (NEGATIVE)
[2022-08-30 13:57] LABS: BASOPHILS % (AUTO) 1 % (0-10); EOSINOPHILS # (AUTO) 0.2 10^3/uL (0.0-0.3); EOSINOPHILS % (AUTO) 4 % (0-10); HEMATOCRIT 43 % (35-52); HEMOGLOBIN 13.5 g/dL (11.5-16.0); LYMPHOCYTES # (AUTO) 1.3 10^3/uL (1.0-4.0); LYMPHOCYTES % (AUTO) 20 % (12-44); MEAN CORPUSCULAR HEMOGLOBIN 29 pg (25-34); MEAN CORPUSCULAR HGB CONC 32 g/dL (32-36); MEAN CORPUSCULAR VOLUME 92 fL (80-99); MEAN PLATELET VOLUME 12.2 fL (9.0-12.2); MONOCYTES # (AUTO) 0.4 10^3/uL (0.0-1.0); MONOCYTES % (AUTO) 6 % (0-12); NEUTROPHILS # (AUTO) 4.4 10^3/uL (1.8-7.8); NEUTROPHILS % (AUTO) 69 % (42-75); PLATELET COUNT 189 10^3/uL (130-400); WHITE BLOOD COUNT 6.4 10^3/uL (4.3-11.0)
[2022-08-30 14:03] LABS: BACTERIA,URINE FEW /HPF
[2022-08-30 14:08] LABS: POTASSIUM 3.8 MMOL/L (3.6-5.0)
[2022-08-30 14:10] LABS: CALCIUM 9.4 MG/DL (8.5-10.1)
[2022-08-30 14:11] LABS: INR 0.9 (0.8-1.4); PROTHROMBIN TIME PATIENT 12.5 SEC (12.2-14.7); TOTAL PROTEIN 7.4 GM/DL (6.4-8.2)
[2022-08-30 14:13] LABS: BILIRUBIN,TOTAL 0.3 MG/DL (0.1-1.0)
[2022-08-30 14:14] LABS: CREATININE SERUM 0.92 MG/DL (0.60-1.30)
[2022-08-30 14:37] LABS: ERYTHROCYTE SEDIMENTATION RATE 17 MM/HR (0-30)
== END 2022-08-29 10:40 | disposition home or self-care (01) ==
LOC: PREOP 08:24
PROVIDERS: ATTEND Orthopaedic Surgery
DX: Z01.818 Encounter for other preprocedural examination (principal)
CPT/HCPCS: 36415; 80053; 81000; 82308; 85025; 85610; 85652; 86850; 86900; 86901; 87081

== ENCOUNTER 2022-09-05 06:10 | Inpatient (IN) | payer MEDICARE, OTHER ==
--- NOTE | 2022-08-29 07:03 | HISTORY AND PHYSICAL ---
ADMISSION HISTORY AND PHYSICAL This will be for inpatient admission on 09/05/2022 for right total knee arthroplasty. This patient will require regular inpatient admission due to need for pain management, physical therapy and comorbidities as well as gait abnormalities. HISTORY: The patient is a 66-year-old female with longstanding progressive right knee pain. Radiographs reveal severe tricompartmental osteoarthritis with valgus alignment. She has undergone treatment with injections, anti-inflammatories and rest without relief and due to functional impairment and failure to improve with conservative measures, the patient elected to proceed with surgical intervention. REVIEW OF SYSTEMS: No chest pain, no shortness of breath. No dysuria. PAST MEDICAL HISTORY: ____ lumbar spine, dysphoric mood, anxiety, stress, depression, arthritis. PAST SURGICAL HISTORY: Tonsillectomy, bunion, root canal, LASIK, second toe and left total knee arthroplasty. FAMILY HISTORY: Significant for Alzheimer's, cancer, cardiovascular disease. PRIMARY CARE PROVIDER: Dr. López. MEDICATIONS: Diclofenac, tramadol, Detrol, turmeric root, melatonin, ropinirole. ALLERGIES: LYRICA, PENICILLIN. SOCIAL HISTORY: The patient is a former smoker. She drinks alcohol 2 to 3 times per week. RADIOGRAPHS: Reveal severe tricompartmental osteoarthritis, primarily lateral and patellofemoral. PHYSICAL EXAMINATION: GENERAL: The patient is well-developed, well-nourished, in no acute distress. HEENT: Normocephalic, atraumatic. Pupils equal, round, reactive to light. Oropharynx is clear. NECK: Supple. No lymphadenopathy. LUNGS: Clear to auscultation bilaterally. HEART: Regular rate and rhythm. ABDOMEN: Soft, nontender, nondistended. EXTREMITIES: The right knee demonstrates valgus alignment. She has an effusion noted. There is no pain with internal and external rotation of the hips. She is tender over the lateral joint line on the right. Range of motion 0/0/120. There is no varus or valgus laxity. Negative anterior and posterior drawer. She ambulates with an antalgic gait on the right. IMPRESSION: Severe right knee osteoarthritis, unresponsive to conservative measures. PLAN: Right total knee arthroplasty. The risks, benefits, options ramifications and recovery have been discussed at length with the patient. She understands and wishes to proceed. This will be for inpatient admission on 09/05/2022 for right total knee arthroplasty. Job ID: [id number] DocumentID: [id number] Dictated Date: 08/10/2022 09:05:20 Cork Insulation Setter Date: 08/10/2022 11:30:00 Dictated By: RASHID ZEPEDA MD
[2022-09-05] VITALS (11 sets, daily range): BP systolic 116–138; BP diastolic 50–75
[~2022-09-05] VITALS: Ht 149.8 cm; Wt 102.0 kg
[2022-09-05] MEDS ORDERED: CEFUROXIME INJECTION 1,500 MG in NS (IVPB) 50 ML IV ONE (06:30)
[2022-09-05] MEDS ORDERED: MIDAZOLAM 2 MG/2 ML (VERSED) VIAL ONE (06:53)
[2022-09-05] MEDS ORDERED: LIDOCAINE PF 2% 5 ML (XYLOCAINE) VIAL ONE (06:53)
[2022-09-05] MEDS ORDERED: fentaNYL INJ 100 MCG/2 ML AMP ONE ×3 (06:53→09:10)
[2022-09-05] MEDS ORDERED: ROPIVACAINE 5MG/ML 30ML VIAL ONE (06:53)
[2022-09-05] MEDS ORDERED: CHLO4TAB36 PO (07:02)
[2022-09-05] MEDS ORDERED: ASPI-999 PO (07:06)
[2022-09-05] MEDS ORDERED: SEVOFLURANE (ULTANE) 15 ML INHAL SOLN ONE (07:07)
[2022-09-05] MEDS: LACTATED RINGERS 1,000 ML IV PRN ×2 (07:10→07:45)
[2022-09-05] MEDS ORDERED: TRANEXAMIC ACID 100 MG/ML 10 ML INJECTION ONE (07:15)
[2022-09-05] MEDS ORDERED: ONDANSETRON 4 MG/2 ML (SDV) Z0FRAN IVP PRN ×2 (07:15→09:15)
[2022-09-05] MEDS ORDERED: ONDANSETRON 4 MG/2 ML (SDV) Z0FRAN ONE (07:15)
[2022-09-05] MEDS ORDERED: fentaNYL PCA 1,000 MCG/100 ML IV SCH (07:15)
[2022-09-05] MEDS ORDERED: diphenhydrAMINE 50 MG/ML INJ (BENADRYL) IVP PRN (07:15)
[2022-09-05] MEDS ORDERED: INTRA-ARTICULAR IU ONE ×5 (07:30)
--- NOTE | 2022-09-05 07:31 | Progress Note-Pre Operative ---
Pre-Operative Progress Note Date of Available H&P: Aug 10, 2022 Date H&P Reviewed: Sep 05, 2022 Time H&P Reviewed: 07:11 Changes from last HP none Pre-Operative Diagnosis: right knee primary osteoarthritis RASHID ZEPEDA MD Sep 05, 2022 07:31
--- NOTE | 2022-09-05 07:32 | Progress Note-Post Operative ---
Post-Operative Progess Note Surgeon (s)/Digital Media Planner (s) Surgeon RASHID ZEPEDA MD Digital Media Planner: Moises Sebastian Pre-Operative Diagnosis right knee primary osteoarthritis Post-Operative Diagnosis right knee primary osteoarthritis Procedure & Operative Findings Date of Procedure 09/05/22 Procedure Performed/Findings right total knee arthroplasty Anesthesia Type GETA Estimated Blood Loss Estimated blood loss (mL): minimal Specimens/Packing Specimens Removed none Packing: none RASHID ZEPEDA MD Sep 05, 2022 07:32
--- NOTE | 2022-09-05 07:34 | D/C HH Face to Face Order ---
D/C Face to Face Orders Reconcile Patient Problems Problems Reviewed?: Yes Instructions for Patient [facility] [employer], Patient Instructions/FollowUp: three weeks Physician to follow Patient: three weeks Discharge Diet for Home: Regular Diet Patient Data-Allergies,Ht & Wt Patient Allergies: Coded Allergies: codeine (Verified Allergy, Mild, ITCHY, 06/27/22) Penicillins (Verified Allergy, Unknown, 09/05/22) pregabalin (Verified Allergy, Unknown, 09/05/22) morphine (Verified Adverse Reaction, Severe, 09/05/22) MENTAL CHANGES Height (Feet): 4 Height (Inches): 11.00 Weight (Pounds): 233 Home Health Need/Face to Face Date of Face to Face: Sep 05, 2022 Clinical Findings: Muscle weakness, Pain with ambulation, Unsteady gait I have seen Pt laoq-ff-kiql: Yes Discharged To: Home Diagnosis/Conditions: right total knee arthroplasty Patient is Homebound due to: Muscle weakness, Pain w/ambulation Homebound Status Due to the above stated illness, injury or surgical procedure (medical condition or diagnosis) and associated clinical findings, the patient is homebound because of his/her inability to leave home except with aid of a supportive device and/or person AND leaving the home requires a considerable and taxing effort or is medically contraindicated. Pt req the following assistanc: Walker Home Health Nursing Orders Home Health Services Order: Physical Therapy-Evaluate & Treat DC right knee purvi and apply steri strips 09/19/22 Home Health Infusion Therapy Line Start Date: Sep 05, 2022 Therapy Orders Therapy Orders: Physical Therapy, PT to assess for OT Therapy Specific Orders: Eval assistive deivces, Teach enviro modifications/safety, Gait training, Increase strength/endurance, Provider maintenance therapy, Restore ROM Certify Stmt I certify that this patient is under my care and that I, a nurse practitioner or a physician; a operator assistant i cementing working with me, had a face to face encounter that - meets the physician face to face encounter requirements with this patient as dated. RASHID ZEPEDA MD Sep 05, 2022 07:34
[2022-09-05] MEDS ORDERED: rOPINIRole 1 MG (REQUIP) TABLET PO PRN (07:45)
[2022-09-05] MEDS ORDERED: proPOfol 200 MG/20 ML (DIPRIVAN) VIAL IV ONE (08:49)
[2022-09-05] MEDS ORDERED: PROMETHAZINE INJ 25 MG/ML (PHENERGAN) AMP IVP ONE (09:15)
[2022-09-05] MEDS ORDERED: fentaNYL INJ 100 MCG/2 ML AMP IVP ONE (09:15)
[2022-09-05] MEDS ORDERED: MEPERIDINE (DEMEROL) INJ 50 MG/ML IVP ONE (09:15)
--- NOTE | 2022-09-05 09:16 | Progress Note ---
Standard Progress Note Progress Notes/Assess & Plan Date Seen by a Provider: Sep 05, 2022 Time Seen by a Provider: 09:14 Progress/Assessment & Plan post op check no complaints radiographs--HW well positioned without fracture RLE--brisk cap refill with 2 plus DP pulse intact DF and PF of toes and ankle sensation intact to light touch throughout s/p RTKA mobilize as able RASHID ZEPEDA MD Sep 05, 2022 09:16
[2022-09-05] MEDS ORDERED: MEPERIDINE (DEMEROL) INJ 50 MG/ML ONE (09:18)
[2022-09-05] MEDS: NS IV 1000 ML 1,000 ML IV SCH ×2 (11:17→23:08)
[2022-09-05] MEDS ORDERED: DOCUSATE SODIUM 100 MG (COLACE) CAP PO NR (12:15)
[2022-09-05] MEDS: rOPINIRole 1 MG (REQUIP) TABLET PO SCH ×2 (13:23→19:49)
--- NOTE | 2022-09-05 13:36 | Physical Therapy Evaluation ---
PT Evaluation-General Medical Diagnosis Admission Date Sep 05, 2022 at 06:10 Medical Diagnosis: right TKA Onset Date: Sep 05, 2022 Therapy Diagnosis Therapy Diagnosis: impaired mobility, ROM Height/Weight Height (Feet): 4 Height (Inches): 11.00 Weight (Pounds): 233 Weight Bear Status Right Lower Extremity: Right Weight Bearing/Tolerated Referral Physician: Romulo Reason for Referral: Evaluation/Treatment Medical History Pertinent Medical History: Arthritis, HTN Additional Medical History PAST MEDICAL HISTORY: ____ lumbar spine, dysphoric mood, anxiety, stress, depression, arthritis. PAST SURGICAL HISTORY: Tonsillectomy, bunion, root canal, LASIK, second toe and left total knee arthroplasty. Reviewed History: Yes Social History Entry Into Home: Stairs With Railing PT Steps Into Home: 2 Patient is not forthcoming with info about home. She states she is going to be staying with a gentleman that is in the room. Prior Prior Level of Function SCALE: Activities may be completed with or without assistive devices. 0-Jrczpnowgr-tzcikmy completes the activity by him/herself with no assistance from a helper. 5-Set-up or Clean-up Assistance-helper sets up or cleans up; patient completes a ctivity. [place] assists only prior to or following the activity. 4-Supervision or Touching Assistance-helper provides verbal cues and/or touching/steadying and/or contact guard assistance as patient completes activity. Assistance may be provided throughout the activity or intermittently. 3-Partial/Moderate Assistance-helper does LESS THAN HALF the effort. [place] lifts, holds or supports trunk or limbs, but provides less than half the effort. 2-Substantial/Maximal Assistance-helper does MORE THAN HALF the effort. [place] lifts or holds trunk or limbs and provides more than half the effort. 9-Dflmffwfu-aapaow does ALL the effort. Patient does none of the effort to complete the activity. Or, the assistance of 2 or more helpers is required for the patient to complete the activity. If activity was not attempted, code reason: 7-Patient Refused. 9-Not Applicable-not attempted and the patient did not perform the activity before the current illness, exacerbation or injury. 10-Not Attempted due to Environmental Limitations-(lack of equipment, weather restraints, etc.). 88-Not Attempted due to Medical Conditions or Safety Concerns. Bed Mobility: 6 Transfers (B,C,W/C): 6 Gait: 6 Stairs: 6 Indoor Mobility (Ambulation): Independent Stairs: Independent Prior Devices Use: Walker PT Evaluation-Current Subjective Patient in bed pre tx, agrees to PT, has no pain. Pt/Family Goals to be independent at home Objective Patient Orientation: Person, Place, Situation Attachments: IV ROM/Strength ROM Lower Extremities right knee extension +5 degrees, flexion 90 degrees Sensory Hearing: Functional Sensation Right Lower Extremit: Intact Sensation Left Lower Extremity: Intact Transfers Roll Left to Right (QC): 4 Sit to Lying (QC): 4 Lying to Sitting/Side of Bed(Q: 4 Sit to Stand (QC): 4 SBA for supine <-> sit, CGA for sit to stand Gait Does the Patient Walk?: Yes Mode of Locomotion: Walk Anticipated Mode of Locomotion: Walk Walk 10 feet (QC): 4 Walk 50 ft with 2 Turns(QC): 4 Distance: 100' Gait Assistive Device: FWW Comments/Gait Description slow but steady ambulation, CGA, slightly antalgic, small steps but fair step through Balance Sitting Static: Normal Sitting Dynamic: Normal Standing Static: Good Standing Dynamic: Good Treatment R side TKA protocol x10 (AP, QS, HS, SAQ, SLR) Assessment/Needs Patient in bed post tx with nurse call, phone, tray, all needs met. Patient has impaired mobility and ROM. Only needs CGA for transfers and sit to stand and ambulation. Rehab Potential: Fair PT Link Cutter Goals Care Home Goals PT Link Cutter Goals Time Frame: Sep 12, 2022 Roll Left & Right (QC): 6 Sit to Lying (QC): 6 Lying-Sitting on Side/Bed(QC): 6 Sit to Stand (QC): 6 Chair/Mcr-rj-Lgtfh Xfer(QC): 6 Walk 10 feet (QC): 6 Walk 50ft with 2 Turns (QC): 6 Walk 150 ft (QC): 6 1 Step (curb) (QC): 4 4 Steps (QC): 4 PT Plan Problem List Problem List: Activity Tolerance, Functional Strength, Safety, Balance, Gait, Transfer, Bed Mobility, ROM Treatment/Plan Treatment Plan: Continue Plan of Care Treatment Plan: Bed Mobility, Education, Functional Activity Fahad, Functional Strength, Gait, Safety, Therapeutic Exercise, Transfers Treatment Duration: Sep 12, 2022 Frequency: 11 times per week Estimated Hrs Per Day: .25 hour per day Patient and/or Family Agrees t: Yes Safety Risks/Education Patient Education: Gait Training, Transfer Techniques, Correct Positioning, Safety Issues Teaching Recipient: Patient Teaching Methods: Demonstration, Discussion Response to Teaching: Reinforcement Needed Discharge Recommendations Plan Patient will perform bed mobility and transfer training, balance and endurance training, functional strengthening, stair training, gait training, and education, to improve functional mobility and independence at home. Therapy Discharge Recommendati: Home & Family, Post Acute PT Time Time In: 1303 Time Out: 1320 DATE: Sep 05, 2022 Total Billed Treatment Time: 17 Total Billed Treatment 1 visit EVL 17' CALLUM LOPEZ PT Sep 05, 2022 13:36
--- NOTE | 2022-09-05 14:38 | Consultation - Hospitalist ---
MARLYS CASTRO 09/05/22 1438: HPI History of Present Illness: HPI/Chief Complaint Pt is a 66yo female with past medical history of hypothyroidism, HTN, and Osteoarthritis presenting after post-operative total right knee arthroplasty Day 0. Pt was doing well in good spirit sitting in bed w/o complaints. Family was present in room during interview. Denies chest pain, sob, fever, chills, and abdominal pain. Pt noted that she has not used any of her pain medication yet and is tolerating post-procedure. PT/OT should be present later today to work with patient. Date Seen 09/05/22 Attending Physician Rafael López DO PCP Admitting Physician: Enrique Marin MD Attending Physician: Enrique Marin MD Referring Physician Date of Admission Sep 05, 2022 at 06:10 Home Medications & Allergies Home Medications Reviewed patient Home Medication Reconciliation performed by pharmacy medication reconciliations windows deployment technician and/or nursing. Patients Allergies have been reviewed. Allergies Allergies Coded Allergies codeine (Verified Allergy, Mild, ITCHY, 06/27/22) Penicillins (Verified Allergy, Unknown, 09/05/22) pregabalin (Verified Allergy, Unknown, 09/05/22) morphine (Verified Adverse Reaction, Severe, pt has tolerated hydromorphone, 09/05/22) MENTAL CHANGES Past Fduaxjs-Jiyfwy-Lywdyd Hx Patient Social History Tobacco Use?: No Smoking Status: Former Smoker Smokeless Tobacco Frequency: Never a User Use of E-Cig and/or Vaping dev: No Substance use?: No Alcohol Use?: No Pt feels they are or have been: No Seasonal Allergies Seasonal Allergies: Yes Current Status Advance Directives: No Communicates: Verbally Primary Language: Turkmen Preferred Spoken Language: Turkmen Is interpretation needed?: No Sensory deficits: Vision impairment Additional sensory deficits: glasses Implanted or Applied Medical D: None Past Medical History Surgeries: Orthopedic, Tonsillectomy Currently Using CPAP: No Currently Using BIPAP: No Arthritis, Chronic Back Pain Anxiety, Depression Blood Disorders: No Family Medical History No Pertinent Family Hx Review of Systems Constitutional: No chills, No diaphoresis, No fever Respiratory: No cough, No short of breath Cardiovascular: No chest pain, No palpitations Gastrointestinal: No abdominal pain, No constipation, No diarrhea, No nausea Genitourinary: No dysuria, No frequency Psychiatric/Neurological: Denies Headache, Denies Numbness, Denies Paresthesia, Denies Tingling Physical Exam Physical Exam Vital Signs Vital Signs - First Documented Capillary Refill : Less Than 3 Seconds Height, Weight, BMI Height: 4'11.00" Weight: 233lbs. oz. 105.364693om; 45.45 BMI Method:Stated General Appearance: No Apparent Distress Respiratory: Chest Non Tender, Lungs Clear, Normal Breath Sounds Cardiovascular: Regular Rate, Rhythm, No Murmur, Normal Peripheral Pulses Gastrointestinal: Normal Bowel Sounds, Non Tender, Soft Rectal: Deferred Results Results/Procedures Labs Patient resulted labs reviewed. Assessment/Plan Assessment and Plan Assess & Plan/Chief Complaint Postoperative Right Total Knee Arthroplasty Day 0 Oxycodone Pain Management Stool Softeners prn ICS prevent athelectiasis Ambulation PT/OT consulted DVT ppx Lovenox Restless Leg Syndrome Ropinirole HTN HCTZ Anxiety Xaaniketx ROHINI BRAVO MD 09/05/22 1549: HPI History of Present Illness: Source: patient, family Exam Limitations: no limitations Past Oxmqfod-Fnkljo-Fjisjw Hx Patient Social History Tobacco Use?: No Alcohol Use?: Yes Past Medical History Hypertension Arthritis Anxiety Family Medical History No Pertinent Family Hx Physical Exam Physical Exam General Appearance: No Apparent Distress, Obese HEENT: PERRL/EOMI Neck: Normal Inspection, Supple Respiratory: Lungs Clear, Normal Breath Sounds, No Respiratory Distress Cardiovascular: Regular Rate, Rhythm, No Edema, No Murmur Gastrointestinal: Normal Bowel Sounds, Non Tender, Soft Extremity: Normal Inspection, No Pedal Edema Neurologic/Psychiatric: Alert, No Motor/Sensory Deficits Skin: Normal Color, Warm/Dry Results Results/Procedures Imaging: Reviewed Imaging Report Assessment/Plan Assessment and Plan Assess & Plan/Chief Complaint Admitted for scheduled right TKA. Orthopedic surgery primary. Continue home meds as able. Percocet for pain. Refusing bowel regimen. Incentive spirometry. PT/OT, ambulate as able. Will follow up as needed. Diagnosis/Problems Diagnosis/Problems (1) Osteoarthritis of right knee Status: Acute Qualifiers: Osteoarthritis type: primary Qualified Codes: M17.11 - Unilateral primary osteoarthritis, right knee (2) HTN (hypertension) Status: Chronic (3) RLS (restless legs syndrome) Status: Chronic (4) Anxiety Status: Chronic (5) Morbid obesity Status: Chronic Supervisory-Addendum Brief Verification & Attestation Participated in pt care: history, MDM, physical Personally performed: exam, history, MDM, supervision of care Care discussed with: Medical Student Procedures: n/a Results interpretation: Verified all documentation A medical student performed and documented this service in my presence. I reviewed and verified all information documented by the medical student and made modifications to such information, when appropriate. I personally performed the physical exam and medical decision making. MARLYS CASTRO Sep 05, 2022 14:38 ROHINI BRAVO MD Sep 05, 2022 15:49
[2022-09-05] MEDS: CEFUROXIME INJECTION 750 MG in NS (IVPB) 50 ML IV SCH ×2 (15:41→23:01)
--- NOTE | 2022-09-05 17:04 | OPERATIVE REPORT ---
DATE OF SERVICE: 09/05/2022 PREOPERATIVE DIAGNOSIS: Right knee primary osteoarthritis. POSTOPERATIVE DIAGNOSIS: Right knee primary osteoarthritis. PROCEDURE: Right total knee arthroplasty. SURGEON: Dr. Zepeda. SERVICE WORKER: Moises Sebastian, who assisted throughout the procedure and closed the incision. ANESTHESIA General endotracheal. ANESTHESIOLOGIST: Zeb Mahajan CRNA. TOURNIQUET TIME: Approximately 55 minutes at 300 mmHg. ESTIMATED BLOOD LOSS: Minimal. DRAINS: None. COMPLICATIONS: None. POSTOPERATIVE PLAN: Routine total knee arthroplasty protocol. MATERIALS: MicroPort cemented size 4 femur with a cemented size 3 tibia and a 12 mm insert and a 32 patellar button. STATEMENT OF MEDICAL NECESSITY: The patient is a 66-year-old female who has had longstanding progressive right knee pain. Radiographs revealed severe tricompartmental osteoarthritis with valgus alignment. She has tried rest, activity modifications, anti-inflammatories. Due to functional impairment and failure to improve with conservative measures, the patient elected to proceed with surgical intervention. DESCRIPTION OF PROCEDURE: After risks and benefits of the procedure were discussed and questions were answered and informed consent was signed and placed on the chart, the operative site was confirmed in the preoperative holding area initialed by the surgeon. The patient was then transported to the operating room and after adequate levels of general endotracheal anesthetic was obtained, a timeout was called, confirming the operative site. The right lower extremity was prepped and draped in the usual sterile fashion. With the leg elevated and the knee flexed, the tourniquet was inflated to 300 mmHg. A standard anterior approach was utilized. Hemostasis was obtained with cautery. A medial parapatellar arthrotomy was performed, leaving a 1 cm cuff on the patella for later reattachment. A portion of the fat pad was resected. A subperiosteal release was performed on the proximal medial tibia, being careful to stay on the bony surface. The ACL was resected. The custom made block was then placed and fit anatomically on the distal femur. This was pinned into position. This was exchanged for the distal cutting block. The distal cut was made. The #4 cutting block was placed in the previously prepared drill holes and cuts were made from posterior to anterior. Subperiosteal release was then carefully performed on the posterior distal femur, being careful to stay on the bony surface. The custom made tibial block was placed and was well positioned. This was pinned into position. The drop jason was transected the intermalleolar axis. Cut was made. The 4 baseplate was pinned into position. The drop jason transected the intermalleolar axis and this was then prepared with the drill and keel punch. The femoral trial was placed. Trochlear cut was made and the 12 insert was placed. The patella was then prepared by resecting 10 mm off the undersurface. The peg guide was placed and the peg holes were drilled. The 32 trial was placed. The knee was taken through range of motion. Full extension was easily obtained, 120 degrees of flexion with gravity was easily obtained. There was no anterior/posterior or medial/lateral laxity in flexion or extension. Patella tracked well. The trials were removed. The joint was irrigated with pulse lavage. Periarticular block was placed in the posterior capsule, medial and lateral retinaculum extensor mechanism subcutaneous tissues. The bone ends were irrigated and dried. The tibial baseplate was cemented into position. Excessive cement was removed. Superior surface was irrigated and dried and the polyethylene insert was placed. The distal femur was irrigated and dried and the femoral prosthesis was cemented in position. Excessive cement was removed. The knee was brought out into full extension until the cement had cured. The undersurface of the patella was irrigated and dried. The patellar button was cemented into position. Excess cement was removed. Once the cement had cured, the knee was taken through range of motion. Full extension was easily obtained, 120 degrees of flexion with gravity was easily obtained. The patella tracked well. There was no anterior/posterior or medial/lateral laxity in flexion or extension. The joint was further irrigated with pulse lavage. The arthrotomy was closed with #2 Tevdek in tfufhr-qg-ouvhg interrupted fashion. The knee was flexed. The patella tracked well and no undue tension was noted at the repair site. Subcutaneous tissues were irrigated with pulse lavage using a total of 6 liters throughout the procedure. An 0 Vicryl was used for the deep subcutaneous layer, 2-0 Vicryl for the superficial subcutaneous layer and purvi were used on the skin. A soft dressing was applied. The tourniquet was deflated. The patient was transferred to recovery room awake and in stable condition. Job ID: [id number] DocumentID: [id number] Dictated Date: 09/05/2022 09:04:25 Ammunition Specialist Date: 09/05/2022 17:02:00 Dictated By: RASHID ZEPEDA MD
--- NOTE | 2022-09-05 17:09 | Diagnostic Imaging Report ---
INDICATION: Postop right knee. COMPARISON: None. TECHNIQUE: Two views of the right knee. FINDINGS: There is a right total knee arthroplasty. There is intra-articular air and fluid and surrounding soft tissue air and edema. Skin puriv are seen anteriorly. Alignment is normal. No fracture is seen. IMPRESSION: 1. Postoperative changes from right knee arthroplasty with no immediate hardware complication seen. Dictated by: Dictated on workstation # [id number]
[2022-09-05] MEDS ORDERED: NON-FORMULARY MEDICATION 1 EA EA (Tolterodine Tartrate 2 MG) PO SCH (19:15)
[2022-09-05] MEDS: TOLTERODINE LA 2 MG (DETROL LA) CAP PO SCH (19:49)
[2022-09-05] MEDS: oxyCODONE/APAP 5/325MG (PERCOCET 5) TABLET PO PRN (19:49)
[2022-09-05] MEDS: DOCUSATE SODIUM 100 MG (COLACE) CAP PO SCH (19:51)
[2022-09-05] MEDS: SENNA W/DOCUSATE (SENOKOT S) TABLET PO SCH (19:51)
[2022-09-05] MEDS: ALPRAZolam 1 MG (XANAX) TAB PO PRN (23:20)
[2022-09-06 04:58] VITALS: BP 141/64
[2022-09-06] MEDS: TOLTERODINE LA 2 MG (DETROL LA) CAP PO SCH (05:21)
[2022-09-06] MEDS: oxyCODONE/APAP 5/325MG (PERCOCET 5) TABLET PO PRN ×5 (05:21→18:02)
[2022-09-06 05:52] LABS: HEMOGLOBIN 12.2 g/dL (11.5-16.0)
[2022-09-06] MEDS ORDERED: NON-FORMULARY MEDICATION 1 EA EA (Tolterodine Tartrate 2 MG) PO SCH (07:00)
[2022-09-06 07:51] VITALS: BP 118/71
--- NOTE | 2022-09-06 07:58 | Progress Note ---
Standard Progress Note Progress Notes/Assess & Plan Date Seen by a Provider: Sep 06, 2022 Time Seen by a Provider: 07:56 Progress/Assessment & Plan post op check no complaints radiographs--HW well positioned without fracture RLE--brisk cap refill with 2 plus DP pulse intact DF and PF of toes and ankle sensation intact to light touch throughout s/p RTKA mobilize as able Final Diagnosis no complaints Vital Signs Date Time Temp Pulse Resp B/P (MAP) Pulse Ox O2 Delivery O2 Flow Rate FiO2 09/06/22 07:51 36.9 64 18 118/71 (87) 98 Room Air 09/06/22 05:23 18 09/06/22 04:58 36.9 79 18 141/64 (89) 95 Room Air 09/05/22 23:09 36.0 84 20 132/63 (86) 93 Room Air 09/05/22 20:00 Room Air 09/05/22 19:00 37.1 92 18 138/66 (90) 94 Room Air 09/05/22 18:25 18 09/05/22 15:37 36.5 89 18 137/63 (87) 93 Room Air 09/05/22 12:22 35.9 84 19 122/75 (91) 92 Room Air 09/05/22 12:22 35.9 84 19 122/75 (91) 92 Room Air 09/05/22 10:30 Room Air 09/05/22 09:55 Room Air 09/05/22 09:50 36.6 14 128/50 (76) 99 Room Air 09/05/22 09:45 OxyMask 8 09/05/22 09:40 10 123/56 (78) 100 OxyMask 3.00 09/05/22 09:30 12 122/58 (79) 100 OxyMask 8 09/05/22 09:30 OxyMask 8 09/05/22 09:20 13 124/53 (76) 100 OxyMask 8 09/05/22 09:15 OxyMask 8 09/05/22 09:10 14 132/56 (81) 100 OxyMask 8 09/05/22 09:00 OxyMask 8 09/05/22 09:00 36.5 16 116/58 (77) 100 OxyMask 8 I & O 09/06/22 07:00 Intake Total 3115 ml Output Total 1500 ml Balance 1615 ml Laboratory Tests Test 09/06/22 05:16 Range/Units Hemoglobin 12.2 11.5-16.0 g/dL Hematocrit 39 35-52 % RLE--dressing intact NVI distally no calf tenderness s/p RTKA PT/OT RASHID ZEPEDA MD Sep 06, 2022 07:58
[2022-09-06] MEDS: ENOXAPARIN INJECTION 30 MG/0.3 ML SYR SC SCH ×2 (08:00→20:06)
[2022-09-06] MEDS: DOCUSATE SODIUM 100 MG (COLACE) CAP PO SCH ×2 (08:02→20:06)
--- NOTE | 2022-09-06 08:18 | Anesthesia-General Post-Op ---
General Patient Condition Mental Status/LOC: Same as Preop Cardiovascular: Satisfactory Nausea/Vomiting: Absent Respiratory: Satisfactory Pain: Controlled Complications: Absent Post Op Complications Complications None Follow Up Care/Instructions Patient Instructions None needed. Anesthesia/Patient Condition Patient Condition Patient is doing well, no complaints, stable vital signs, no apparent adverse anesthesia problems. No complications reported per nursing. D/C home per [facility] [place] [facility] [place] Criteria: Yes YG ARIAS CRNA Sep 06, 2022 08:18
[2022-09-06] MEDS: NS IV 1000 ML 1,000 ML IV SCH ×2 (08:38→11:54)
[2022-09-06] MEDS: ASPIRIN E.C. 81 MG (ECOTRIN) TAB PO SCH (08:51)
[2022-09-06] MEDS: rOPINIRole 1 MG (REQUIP) TABLET PO SCH ×3 (08:52→20:06)
[2022-09-06] MEDS: SENNA W/DOCUSATE (SENOKOT S) TABLET PO SCH ×2 (09:29→20:06)
--- NOTE | 2022-09-06 10:06 | Physical Therapy Daily Note ---
PT Daily Note-Current Subjective Patient agrees to PT. Pain Numeric Pain Scale: 5-Moderate Pain Location: Right Location Body Site: Knee Pain Description: Acute Section J - Health Conditions 1. Rarely or not at all 2. Occasionally 3. Frequently 4. Almost constantly 8. Unable to answer Pain Effect on Sleep: 2 Pain Interference with Therapy: 1 Pain Interference w/Day-to-Day: 2 Mental Status Patient Orientation: Normal For Age Attachments: Polar Pack, IV Transfers SCALE: Activities may be completed with or without assistive devices. 7-Akviiqhbkf-sfoivjv completes the activity by him/herself with no assistance from a helper. 5-Set-up or Clean-up Assistance-helper sets up or cleans up; patient completes activity. [place] assists only prior to or following the activity. 4-Supervision or Touching Assistance-helper provides verbal cues and/or touching/steadying and/or contact guard assistance as patient completes activity. Assistance may be provided throughout the activity or intermittently. 3-Partial/Moderate Assistance-helper does LESS THAN HALF the effort. [place] lifts, holds or supports trunk or limbs, but provides less than half the effort. 2-Substantial/Maximal Assistance-helper does MORE THAN HALF the effort. [place] lifts or holds trunk or limbs and provides more than half the effort. 8-Gvoprpcaw-vaiyzn does ALL the effort. Patient does none of the effort to complete the activity. Or, the assistance of 2 or more helpers is required for the patient to complete the activity. If activity was not attempted, code reason: 7-Patient Refused. 9-Not Applicable-not attempted and the patient did not perform the activity before the current illness, exacerbation or injury. 10-Not Attempted due to Environmental Limitations-(lack of equipment, weather restraints, etc.). 88-Not Attempted due to Medical Conditions or Safety Concerns. Lying to Sitting/Side of Bed(Q: 6 Sit to Stand (QC): 6 Chair/Dvr-so-Lhhcw Xfer(QC): 6 Weight Bearing Right Lower Extremity: Right Weight Bearing/Tolerated Gait Training Distance: 250' Walk 10 feet (QC): 5 Walk 50 ft with 2 Turns(QC): 5 Walk 150 ft (QC): 5 Gait Assistive Device: FWW slow, antalgic, functional gait sequence Exercises Supine Ex: Ankle pumps, Quad Set, Heel Slides, Straight leg raise Supine Reps: 15 Seated Therapy Exercises: Long arc quads Seated Reps: 15 Assessment Patient progressing with treatment plan. Patient up in recliner with needs met. Increase activity as tolerated by patient. PT Longterm Goals Longterm Goals PT Longterm Goals Time Frame: Sep 12, 2022 Roll Left & Right (QC): 6 Sit to Lying (QC): 6 Lying-Sitting on Side/Bed(QC): 6 Sit to Stand (QC): 6 Chair/Izw-pj-Hvssi Xfer(QC): 6 Walk 10 feet (QC): 6 Walk 50ft with 2 Turns (QC): 6 Walk 150 ft (QC): 6 1 Step (curb) (QC): 4 4 Steps (QC): 4 PT Plan Treatment/Plan Treatment Plan: Continue Plan of Care Treatment Plan: Bed Mobility, Education, Functional Activity Fahad, Functional Strength, Gait, Safety, Therapeutic Exercise, Transfers Treatment Duration: Sep 12, 2022 Frequency: 11 times per week Estimated Hrs Per Day: .25 hour per day Patient and/or Family Agrees t: Yes Time Time In: 921 Time Out: 945 DATE: Sep 06, 2022 Total Billed Treatment Time: 24 Total Billed Treatment 1 visit GT 11 min EX 13 min FRANCISCA JENNINGS PT Sep 06, 2022 10:06
--- NOTE | 2022-09-06 10:31 | Occupational Therapy Eval ---
OT Evaluation-General/PLF Medical Diagnosis Admission Date Sep 05, 2022 at 06:10 Medical Diagnosis: right TKA Onset Date: Sep 05, 2022 Therapy Diagnosis Therapy Diagnosis: decreased ADL status Height/Weight Height (Feet): 4 Height (Inches): 11.00 Weight (Pounds): 233 Precautions Precautions/Isolations: Fall Prevention, Standard Precautions Referral Physician: Romulo Referral Reason: Evaluation/Treatment Medical History Pertinent Medical History: Arthritis, HTN Additional Medical History lumbar spine, dysphoric mood, anxiety/depression, arthritis, 2nd toe surgery, L knee replacement Current History s/p R TKA 09/05/22 Social History Current Living Status: Alone Entry Into Home: Stairs With Railing Steps Into Home: 2 Pt lives alone, but plans to stay with a "friend" Kevin at discharge. ADL-Prior Level of Function SCALE: Activities may be completed with or without assistive devices. 8-Zlsqekwghv-oymjcuw completes the activity by him/herself with no assistance from a helper. 5-Set-up or Clean-up Assistance-helper sets up or cleans up; patient completes activity. [place] assists only prior to or following the activity. 4-Supervision or Touching Assistance-helper provides verbal cues and/or touching/steadying and/or contact guard assistance as patient completes activity. Assistance may be provided throughout the activity or intermittently. 3-Partial/Moderate Assistance-helper does LESS THAN HALF the effort. [place] lifts, holds or supports trunk or limbs, but provides less than half the effort. 2-Substantial/Maximal Assistance-helper does MORE THAN HALF the effort. [place] lifts or holds trunk or limbs and provides more than half the effort. 7-Zanhnelcd-wrldpt does ALL the effort. Patient does none of the effort to complete the activity. Or, the assistance of 2 or more helpers is required for the patient to complete the activity. If activity was not attempted, code reason: 7-Patient Refused. 9-Not Applicable-not attempted and the patient did not perform the activity before the current illness, exacerbation or injury. 10-Not Attempted due to Environmental Limitations-(lack of equipment, weather restraints, etc.). 88-Not Attempted due to Medical Conditions or Safety Concerns. ADL PLOF Comments Pt reports IND with ADLs and functional mobility at PLOF Self Care: Independent DME/Equipment: Bath Chair, Shower OT Current Status Subjective Pt in recliner, agreeable to OT Tx. Pt's friend Kevin present. Mental Status/Objective Patient Orientation: Normal For Age Current Upper Extremity ROM WFL ADL-Treatment Eating (QC): 6 Oral Hygiene (QC): 5 On/Off Footwear (QC): 3 (Assist with RLE) Other Treatments Pt up in recliner, agreeable to OT evaluation. Pt provided information about PLOF and home set up, indicates she plans to stay with Kevin (friend) at discharge. Pt reports some difficulty with footwear at baseline, indicates Kevin is able to assist her if needed. Pt asking about sock aide. OT provided education on various sock aides available for purchase, pt verbalizes understanding. OT also provided education on using a services manager to doff footwear, she verbalized understanding. Pt declined further OT services, indicating she has no other concerns with ADLs, feels like she will be able to manage upon discharging, and she knows what to expect since she had her L knee done in the past. OT informed pt if there are further concerns, let the RN know and get ahold of OT, she verbalized understanding. Post tx, pt in recliner, call light in reach and all needs met. Education OT Patient Education: Correct positioning, Energy conservation, Modified ADL techniques, Progress toward Goal/Update tx plan, Purpose of tx/functional activities, Rehab process, Use of adapted equipment Teaching Recipient: Patient Teaching Methods: Discussion Response to Teaching: Verbalize Understanding OT Color Developer Goals [facility] Goals 1=Demonstrate adherence to instructed precautions during ADL tasks. 2=Patient will verbalize/demonstrate understanding of assistive devices/modifications for ADL. 3=Patient will improve strength/tolerance for activity to enable patient to per form ADL's. OT Education/Plan Problem List/Assessment Assessment: No Skilled OT Needs ID'd Pt reports no concerns with her ability to complete ADLs upon discharging, has assistance if needed. Pt declined further OT services. If pt has concerns with ADLs, please send new OT orders. D/C From OT at this time. Discharge Recommendations Plan/Recommendations: Discharge/Goals Met Treatment Plan/Plan of Care Patient would benefit from OT for education, treatment and training to promote independence in ADL's, mobility, safety and/or upper extremity function for ADL's. Plan of Care: ADL Retraining, Functional Mobility Treatment Duration: Sep 06, 2022 Frequency: 1 time per week (eval only) Rehab Potential: Fair Time Start Time: 10:01 Stop Time: 10:11 DATE: Sep 06, 2022 Total Time Billed (hr/min): 10 Billed Treatment Time 1, RENUKA LEOS OT Sep 06, 2022 10:31
[2022-09-06 11:41] VITALS: BP 117/54
--- NOTE | 2022-09-06 13:56 | Physical Therapy Daily Note ---
PT Daily Note-Current Subjective Patient agrees to PT. Pain Numeric Pain Scale: 5-Moderate Pain Location: Right Location Body Site: Knee Pain Description: Acute Section J - Health Conditions 1. Rarely or not at all 2. Occasionally 3. Frequently 4. Almost constantly 8. Unable to answer Pain Effect on Sleep: 2 Pain Interference with Therapy: 1 Pain Interference w/Day-to-Day: 2 Mental Status Patient Orientation: Normal For Age Transfers SCALE: Activities may be completed with or without assistive devices. 7-Hqsiwtzvbu-jiakdod completes the activity by him/herself with no assistance from a helper. 5-Set-up or Clean-up Assistance-helper sets up or cleans up; patient completes activity. [place] assists only prior to or following the activity. 4-Supervision or Touching Assistance-helper provides verbal cues and/or touching/steadying and/or contact guard assistance as patient completes activity. Assistance may be provided throughout the activity or intermittently. 3-Partial/Moderate Assistance-helper does LESS THAN HALF the effort. [place] lifts, holds or supports trunk or limbs, but provides less than half the effort. 2-Substantial/Maximal Assistance-helper does MORE THAN HALF the effort. [place] lifts or holds trunk or limbs and provides more than half the effort. 2-Lhcuncegt-itqhnk does ALL the effort. Patient does none of the effort to complete the activity. Or, the assistance of 2 or more helpers is required for the patient to complete the activity. If activity was not attempted, code reason: 7-Patient Refused. 9-Not Applicable-not attempted and the patient did not perform the activity befo re the current illness, exacerbation or injury. 10-Not Attempted due to Environmental Limitations-(lack of equipment, weather re straints, etc.). 88-Not Attempted due to Medical Conditions or Safety Concerns. Lying to Sitting/Side of Bed(Q: 6 Sit to Stand (QC): 6 Chair/Tzb-wg-Ldxoy Xfer(QC): 6 Weight Bearing Right Lower Extremity: Right Weight Bearing/Tolerated Gait Training Distance: 250' Walk 10 feet (QC): 5 Walk 50 ft with 2 Turns(QC): 5 Walk 150 ft (QC): 5 Gait Assistive Device: FWW steady, antalgic gait Exercises Supine Ex: Ankle pumps, Quad Set, Heel Slides, Straight leg raise Supine Reps: 15 Seated Therapy Exercises: Long arc quads Seated Reps: 15 Assessment Patient progressing with treatment plan. Patient will dismiss to home tomorrow after therapy. PT Fdc Goals Environmental Project Manager Goals PT Fdc Goals Time Frame: Sep 12, 2022 Roll Left & Right (QC): 6 Sit to Lying (QC): 6 Lying-Sitting on Side/Bed(QC): 6 Sit to Stand (QC): 6 Chair/Qfy-eg-Alssy Xfer(QC): 6 Walk 10 feet (QC): 6 Walk 50ft with 2 Turns (QC): 6 Walk 150 ft (QC): 6 1 Step (curb) (QC): 4 4 Steps (QC): 4 PT Plan Treatment/Plan Treatment Plan: Continue Plan of Care Treatment Plan: Bed Mobility, Education, Functional Activity [place], Functional Strength, Gait, Safety, Therapeutic Exercise, Transfers Treatment Duration: Sep 12, 2022 Frequency: 11 times per week Estimated Hrs Per Day: .25 hour per day Patient and/or Family Agrees t: Yes Time Time In: 1300 Time Out: 1324 DATE: Sep 06, 2022 Total Billed Treatment Time: 24 Total Billed Treatment 1 visit EX 13 min GT 11 min FRANCISCA JENNINGS PT Sep 06, 2022 13:56
[2022-09-06 15:30] VITALS: BP 120/78
[2022-09-06 19:52] VITALS: BP 137/63
[2022-09-06 23:43] VITALS: BP 150/62
[2022-09-07] MEDS: ALPRAZolam 1 MG (XANAX) TAB PO PRN (00:12)
[2022-09-07] MEDS: NS IV 1000 ML 1,000 ML IV SCH (00:12)
--- NOTE | 2022-09-07 01:15 | DISCHARGE SUMMARY ---
DIAGNOSES: 1. Right knee primary osteoarthritis. 2. Anxiety. 3. Depression. 4. Arthritis. 5. Degenerative spine disease. PROCEDURE: Right total knee arthroplasty. SUMMARY OF HOSPITAL COURSE: The patient is a 66-year-old female who underwent a right total knee arthroplasty on day of admission. Postoperatively, she did well. At the time of discharge, her wound was clean and dry. She had no calf tenderness. Negative Homans sign. She was tolerating diet well and tolerating her pain with oral pain medication. CONDITION ON DISCHARGE: Good. DISCHARGE DIET: Regular. FOLLOWUP: Follow up in 3 weeks. ACTIVITIES: Weightbearing as tolerated with a walker. Home physical therapy will be arranged. DISCHARGE MEDICATIONS: Home medications, aspirin 1 per day and Percocet as needed for pain. Job ID: [id number] DocumentID: [id number] Dictated Date: 09/06/2022 08:03:48 Dementia Program Director Date: 09/07/2022 01:15:00 Dictated By: RASHID ZEPEDA MD
[2022-09-07] MEDS: oxyCODONE/APAP 5/325MG (PERCOCET 5) TABLET PO PRN ×3 (01:47→09:03)
[2022-09-07 03:35] VITALS: BP 146/77
[2022-09-07 05:39] LABS: HEMOGLOBIN 10.8 g/dL (11.5-16.0)
[2022-09-07] MEDS: TOLTERODINE LA 2 MG (DETROL LA) CAP PO SCH (06:11)
--- NOTE | 2022-09-07 06:55 | Progress Note ---
Standard Progress Note Progress Notes/Assess & Plan Date Seen by a Provider: Sep 07, 2022 Time Seen by a Provider: 06:54 Progress/Assessment & Plan post op check no complaints radiographs--HW well positioned without fracture RLE--brisk cap refill with 2 plus DP pulse intact DF and PF of toes and ankle sensation intact to light touch throughout s/p RTKA mobilize as able Final Diagnosis no complaints Vital Signs Date Time Temp Pulse Resp B/P (MAP) Pulse Ox O2 Delivery O2 Flow Rate FiO2 09/07/22 06:42 36.2 09/07/22 06:12 18 09/07/22 03:35 36.2 77 16 146/77 (100) 97 Room Air 09/07/22 02:25 36.1 09/06/22 23:43 36.1 76 16 150/62 (91) 98 Room Air 09/06/22 20:22 Room Air 09/06/22 19:52 37.0 71 18 137/63 (87) 98 Room Air 09/06/22 18:00 18 09/06/22 15:30 37.2 74 18 120/78 (92) 97 Room Air 09/06/22 11:41 36.6 64 18 117/54 (75) 98 Room Air 09/06/22 11:17 98 Room Air 8.00 09/06/22 07:51 36.9 64 18 118/71 (87) 98 Room Air I & O 09/07/22 07:00 Intake Total 2335 ml Output Total 1600 ml Balance 735 ml Laboratory Tests Test 09/07/22 04:57 Range/Units Hemoglobin 10.8 L 11.5-16.0 g/dL Hematocrit 34 L 35-52 % RLE--incision clean and dry no calf tenderness neg Manuel's s/p RTKA doing well DC after PT today RASHID ZEPEDA MD Sep 07, 2022 06:55
[2022-09-07 07:02] VITALS: BP 147/65
[2022-09-07] MEDS: ENOXAPARIN INJECTION 30 MG/0.3 ML SYR SC SCH (08:51)
[2022-09-07] MEDS: ASPIRIN E.C. 81 MG (ECOTRIN) TAB PO SCH (08:51)
[2022-09-07] MEDS: rOPINIRole 1 MG (REQUIP) TABLET PO SCH (08:51)
[2022-09-07] MEDS: DOCUSATE SODIUM 100 MG (COLACE) CAP PO SCH (08:52)
[2022-09-07] MEDS: SENNA W/DOCUSATE (SENOKOT S) TABLET PO SCH (08:52)
--- NOTE | 2022-09-07 10:07 | Physical Therapy Daily Note ---
PT Daily Note-Current Subjective Patient agrees to PT. Pain Numeric Pain Scale: 3 Location: Right Location Body Site: Knee Pain Description: Acute Section J - Health Conditions 1. Rarely or not at all 2. Occasionally 3. Frequently 4. Almost constantly 8. Unable to answer Pain Effect on Sleep: 2 Pain Interference with Therapy: 1 Pain Interference w/Day-to-Day: 2 Mental Status Patient Orientation: Normal For Age Transfers SCALE: Activities may be completed with or without assistive devices. 9-Mhhjpwmpmo-vlkqevm completes the activity by him/herself with no assistance from a helper. 5-Set-up or Clean-up Assistance-helper sets up or cleans up; patient completes activity. [place] assists only prior to or following the activity. 4-Supervision or Touching Assistance-helper provides verbal cues and/or touching/steadying and/or contact guard assistance as patient completes activity. Assistance may be provided throughout the activity or intermittently. 3-Partial/Moderate Assistance-helper does LESS THAN HALF the effort. [place] lifts, holds or supports trunk or limbs, but provides less than half the effort. 2-Substantial/Maximal Assistance-helper does MORE THAN HALF the effort. [place] lifts or holds trunk or limbs and provides more than half the effort. 8-Sjfzcuend-vpdiuf does ALL the effort. Patient does none of the effort to complete the activity. Or, the assistance of 2 or more helpers is required for the patient to complete the activity. If activity was not attempted, code reason: 7-Patient Refused. 9-Not Applicable-not attempted and the patient did not perform the activity before the current illness, exacerbation or injury. 10-Not Attempted due to Environmental Limitations-(lack of equipment, weather restraints, etc.). 88-Not Attempted due to Medical Conditions or Safety Concerns. Sit to Stand (QC): 6 Weight Bearing Right Lower Extremity: Right Weight Bearing/Tolerated Gait Training Distance: 250' Walk 10 feet (QC): 6 Walk 50 ft with 2 Turns(QC): 6 Walk 150 ft (QC): 6 Gait Assistive Device: FWW steady, antalgic, reciprocal pattern Exercises Seated Therapy Exercises: Ankle pumps, Long arc quads Seated Reps: 15 Assessment Patient reports compliance with HEP issued at preop. Patient progressing with treatment plan and will dismiss to home on this date. PT Care Home Goals Care Home Goals PT Set Off Blocker Goals Time Frame: Sep 12, 2022 Roll Left & Right (QC): 6 Sit to Lying (QC): 6 Lying-Sitting on Side/Bed(QC): 6 Sit to Stand (QC): 6 Chair/Bcj-xw-Ttbxg Xfer(QC): 6 Walk 10 feet (QC): 6 Walk 50ft with 2 Turns (QC): 6 Walk 150 ft (QC): 6 1 Step (curb) (QC): 4 4 Steps (QC): 4 PT Plan Treatment/Plan Treatment Plan: Discontinue PT Treatment Plan: Bed Mobility, Education, Functional Activity [place], Functional Strength, Gait, Safety, Therapeutic Exercise, Transfers Treatment Duration: Sep 12, 2022 Frequency: 11 times per week Estimated Hrs Per Day: .25 hour per day Patient and/or Family Agrees t: Yes Time Time In: 835 Time Out: 848 DATE: Sep 07, 2022 Total Billed Treatment Time: 13 Total Billed Treatment 1 visit FA 13 min FRANCISCA JENNINGS PT Sep 07, 2022 10:07
== END 2022-09-07 09:58 | disposition home health service (06) | DRG 470 ==
LOC: 4TH 06:10 → SURG 06:11 → 4TH 10:00
PROVIDERS: ADMIT Orthopaedic Surgery; ATTEND Orthopaedic Surgery
PROC: 0SRC0J9 Replacement of Right Knee Joint with Synthetic Substitute, Cemented, Open Approach (ICD-10-PCS; principal; 2022-09-05 07:34)
DX: M17.11 Unilateral primary osteoarthritis, right knee (principal); F41.9 Anxiety disorder, unspecified; F32.A Depression, unspecified; M47.9 Spondylosis, unspecified; Z87.891 Personal history of nicotine dependence
CPT/HCPCS: 36415; 73560; 85014; 85018; 86850; 86900; 86901; 94664